=== PATIENT | male | born 1985 | race Caucasian/White ===

== ENCOUNTER → 2022-03-04 13:14 | Outpatient (BNVA) | payer OTHER, SELFPAY | PROVIDERS: PCP Family Medicine; Visit Provider Nurse Practitioner | DX: Z94.2 Lung transplant status (principal) | CPT/HCPCS: 80053; 80197; 83735; 85025; 87496 ==

== ENCOUNTER → 2022-03-11 08:40 | Outpatient (BNVA) | payer OTHER, SELFPAY | PROVIDERS: PCP Family Medicine; Visit Provider Nurse Practitioner | DX: Z94.2 Lung transplant status (principal) | CPT/HCPCS: 80053; 80197; 83735; 85025; 87496 ==

== ENCOUNTER → 2022-03-18 10:02 | Outpatient (BNVA) | payer OTHER, SELFPAY | PROVIDERS: PCP Family Medicine; Visit Provider Nurse Practitioner | DX: Z94.2 Lung transplant status (principal) | CPT/HCPCS: 80053; 80197; 83735; 85025; 87496 ==

== ENCOUNTER 2022-03-28 09:56 | Outpatient (CLI) | payer OTHER, SELFPAY | END 2022-03-28 09:57 | disposition home or self-care (01) | LOC: RT 09:58 | PROVIDERS: PCP Family Medicine; Visit Provider Internal Medicine Pulmonary Disease | DX: Z94.3 Heart and lungs transplant status (principal) | CPT/HCPCS: 94010 ==

== ENCOUNTER → 2022-04-01 11:30 | Outpatient (BNVA) | payer OTHER, SELFPAY | PROVIDERS: PCP Family Medicine; Visit Provider Nurse Practitioner Family | DX: Z94.2 Lung transplant status (principal) | CPT/HCPCS: 80053; 80197; 83735; 87496 ==

== ENCOUNTER → 2022-04-09 08:53 | Outpatient (BNVA) | payer OTHER, SELFPAY | PROVIDERS: PCP Family Medicine; Visit Provider Nurse Practitioner | DX: Z94.2 Lung transplant status (principal) | CPT/HCPCS: 80053; 80197; 83735; 85025; 87496 ==

== ENCOUNTER → 2022-04-22 09:04 | Outpatient (BNVA) | payer BC, SELFPAY | PROVIDERS: PCP Family Medicine; Visit Provider Nurse Practitioner | DX: Z94.2 Lung transplant status (principal); D84.9 Immunodeficiency, unspecified | CPT/HCPCS: 80053; 80197; 83735; 85025; 87496 ==

== ENCOUNTER → 2022-05-20 09:12 | Outpatient (BNVA) | payer BC, SELFPAY | PROVIDERS: PCP Family Medicine; Visit Provider Nurse Practitioner | DX: Z94.2 Lung transplant status (principal); D84.9 Immunodeficiency, unspecified | CPT/HCPCS: 80053; 80197; 83735; 85025; 87496 ==

== ENCOUNTER → 2022-05-27 09:01 | Outpatient (BNVA) | payer BC, SELFPAY | PROVIDERS: PCP Family Medicine; Visit Provider Nurse Practitioner | DX: D84.9 Immunodeficiency, unspecified (principal); Z94.2 Lung transplant status | CPT/HCPCS: 80053; 80197; 83735; 85025; 87496 ==

== ENCOUNTER → 2022-06-10 08:56 | Outpatient (BNVA) | payer BC, SELFPAY | PROVIDERS: PCP Family Medicine; Visit Provider Nurse Practitioner | DX: D84.9 Immunodeficiency, unspecified (principal); Z94.2 Lung transplant status | CPT/HCPCS: 80053; 80197; 83735; 85025; 87496 ==

== ENCOUNTER → 2022-06-24 10:31 | Outpatient (BNVA) | payer BC, SELFPAY | PROVIDERS: PCP Family Medicine; Visit Provider Nurse Practitioner | DX: D84.9 Immunodeficiency, unspecified (principal); Z94.2 Lung transplant status | CPT/HCPCS: 80053; 80197; 83735; 85025; 87496 ==

== ENCOUNTER → 2022-07-01 11:41 | Outpatient (BNVA) | payer BC, SELFPAY | PROVIDERS: PCP Family Medicine; Visit Provider Nurse Practitioner | DX: Z94.2 Lung transplant status (principal) | CPT/HCPCS: 80053; 80197; 83735; 85025; 87496 ==

== ENCOUNTER → 2022-07-08 08:59 | Outpatient (BNVA) | payer BC, SELFPAY | PROVIDERS: PCP Family Medicine; Visit Provider Nurse Practitioner | DX: D84.9 Immunodeficiency, unspecified (principal); Z94.2 Lung transplant status | CPT/HCPCS: 80053; 80197; 80200; 83735; 85025; 87496 ==

== ENCOUNTER → 2022-07-15 10:19 | Outpatient (BNVA) | payer BC, SELFPAY | PROVIDERS: PCP Family Medicine; Visit Provider Nurse Practitioner | DX: Z94.2 Lung transplant status (principal); D84.9 Immunodeficiency, unspecified | CPT/HCPCS: 80053; 80197; 83735; 85025; 87496 ==

== ENCOUNTER → 2022-07-22 09:13 | Outpatient (BNVA) | payer BC, SELFPAY | PROVIDERS: PCP Family Medicine; Visit Provider Nurse Practitioner | DX: D84.9 Immunodeficiency, unspecified (principal); Z94.2 Lung transplant status | CPT/HCPCS: 80053; 80197; 83735; 85025; 87496 ==

== ENCOUNTER → 2022-08-05 10:10 | Outpatient (BNVA) | payer BC, SELFPAY | PROVIDERS: PCP Family Medicine; Visit Provider Nurse Practitioner | DX: D84.9 Immunodeficiency, unspecified (principal); Z94.2 Lung transplant status | CPT/HCPCS: 80053; 80197; 83735; 85025; 87496 ==

== ENCOUNTER → 2022-08-19 08:42 | Outpatient (BNVA) | payer BC, SELFPAY | PROVIDERS: PCP Family Medicine; Visit Provider Nurse Practitioner | DX: D84.9 Immunodeficiency, unspecified (principal); Z94.2 Lung transplant status | CPT/HCPCS: 80053; 80197; 83735; 85025; 87496 ==

== ENCOUNTER → 2022-09-10 08:57 | Outpatient (BNVA) | payer BC, SELFPAY | PROVIDERS: PCP Family Medicine; Visit Provider Nurse Practitioner | DX: D84.9 Immunodeficiency, unspecified (principal); J80 Acute respiratory distress syndrome; U07.1 COVID-19; Z94.2 Lung transplant status | CPT/HCPCS: 80053; 80197; 83735; 85025; 87496 ==

== ENCOUNTER → 2022-09-23 09:09 | Outpatient (BNVA) | payer BC, SELFPAY | PROVIDERS: PCP Family Medicine; Visit Provider Nurse Practitioner | DX: D84.9 Immunodeficiency, unspecified (principal); Z94.2 Lung transplant status | CPT/HCPCS: 80053; 80197; 83735; 85025; 87496 ==

== ENCOUNTER → 2022-10-07 08:50 | Outpatient (BNVA) | payer BC, SELFPAY | PROVIDERS: PCP Family Medicine; Visit Provider Nurse Practitioner | DX: D84.9 Immunodeficiency, unspecified (principal); Z94.2 Lung transplant status | CPT/HCPCS: 80053; 80197; 83735; 85025; 87496 ==

== ENCOUNTER → 2022-11-04 09:03 | Outpatient (BNVA) | payer BC, SELFPAY | PROVIDERS: PCP Family Medicine; Visit Provider Nurse Practitioner | DX: D84.9 Immunodeficiency, unspecified (principal); Z94.2 Lung transplant status | CPT/HCPCS: 80053; 80197; 83735; 85025; 87496 ==

== ENCOUNTER 2022-11-07 10:53 | Outpatient (CLI) | payer BC, SELFPAY ==
--- NOTE | 2022-11-07 11:16 | USCV_ITS ---
Breann Rangel Age: 37 Gender: M : 1985 Exam Date: 11/07/2022 11:28 Ordering Phys: Misa Montoya NP Technologist: Exam Location: [facility] [place] Indication: hx of massive pe lt leg dvt hx of lung transplant HISTORY: pe PROCEDURES: The venous duplex Doppler examination of both lower extremities was performed in the standard fashion. The following venous structures were evaluated: common femoral vein, profunda vein, proximal portion of the greater saphenous vein, superficial femoral vein, and the popliteal vein. FINDINGS: There is chronic occluding dvt from the lt femoral vein , popletieal, and lt perinieal trunk. There appears to be recanalized ned from profunda vein to the knee. There does not appear to be new thrombus in the lt leg. The rt leg is normal. CONCLUSIONS Chronic appearing occlusive DVT LEFT femoral, popliteal, and peroneal trunk. Recanalized profunda. No acute appearing thrombus No evidence of right lower extremity DVT. Bartolo Parmar MD (Electronically Signed) Final Date: 07 November 2022 14:42 S
== END 2022-11-07 10:54 | disposition home or self-care (01) ==
PROVIDERS: PCP Family Medicine; Visit Provider Nurse Practitioner
DX: D84.9 Immunodeficiency, unspecified (principal); Z94.2 Lung transplant status
CPT/HCPCS: 93970

== ENCOUNTER → 2022-12-02 08:59 | Outpatient (BNVA) | payer BC, SELFPAY | PROVIDERS: PCP Nurse Practitioner Family; Visit Provider Nurse Practitioner | DX: D84.9 Immunodeficiency, unspecified (principal); Z94.2 Lung transplant status | CPT/HCPCS: 80053; 80197; 83735; 85025; 87496 ==

== ENCOUNTER → 2022-12-30 12:21 | Outpatient (BNVA) | payer BC, SELFPAY | PROVIDERS: PCP Nurse Practitioner Family; Visit Provider Nurse Practitioner Family | DX: D84.9 Immunodeficiency, unspecified (principal); Z94.2 Lung transplant status | CPT/HCPCS: 80053; 80197; 83735; 85025; 87496 ==

== ENCOUNTER 2023-01-29 10:50 | Outpatient (CLI) | payer BC, SELFPAY | END 2023-01-29 10:51 | disposition home or self-care (01) | PROVIDERS: Family Provider Internal Medicine Pulmonary Disease; PCP Nurse Practitioner Family; Visit Provider Internal Medicine Pulmonary Disease | DX: Z94.2 Lung transplant status (principal) | CPT/HCPCS: 94010 ==

== ENCOUNTER → 2023-01-30 11:27 | Outpatient (BNVA) | payer BC, SELFPAY | PROVIDERS: Family Provider Internal Medicine Pulmonary Disease; PCP Nurse Practitioner Family; Visit Provider Nurse Practitioner Family | DX: D84.9 Immunodeficiency, unspecified (principal); J80 Acute respiratory distress syndrome; U07.1 COVID-19; Z94.2 Lung transplant status | CPT/HCPCS: 80053; 80197; 83735; 85025; 87496 ==

== ENCOUNTER → 2023-03-12 09:10 | Outpatient (BNVA) | payer BC, SELFPAY | PROVIDERS: Family Provider Internal Medicine Pulmonary Disease; PCP Nurse Practitioner Family; Visit Provider Nurse Practitioner Family | DX: D84.9 Immunodeficiency, unspecified (principal); U07.1 COVID-19; J80 Acute respiratory distress syndrome | CPT/HCPCS: 80053; 80197; 83735; 85007; 85027; 87496 ==

== ENCOUNTER → 2023-04-09 09:12 | Outpatient (BNVA) | payer BC, SELFPAY | PROVIDERS: Family Provider Internal Medicine Pulmonary Disease; PCP Nurse Practitioner Family; Visit Provider Nurse Practitioner Family | DX: U07.1 COVID-19 (principal); J80 Acute respiratory distress syndrome; Z94.2 Lung transplant status; Z79.899 Other long term (current) drug therapy | CPT/HCPCS: 80053; 80197; 83735; 85007; 85027; 87496 ==

== ENCOUNTER → 2023-05-07 12:18 | Outpatient (BNVA) | payer OTHER, SELFPAY | PROVIDERS: Family Provider Internal Medicine Pulmonary Disease; PCP Nurse Practitioner Family; Visit Provider Nurse Practitioner Family | DX: D84.9 Immunodeficiency, unspecified (principal); U07.1 COVID-19; J80 Acute respiratory distress syndrome; Z94.2 Lung transplant status | CPT/HCPCS: 80053; 80197; 83735; 85007; 85025; 85027; 87496 ==

== ENCOUNTER 2023-05-15 17:07 | Inpatient (IN) | payer BC, OTHER, SELFPAY ==
[2023-05-15 17:11] VITALS: BP 150/96; PULSE 94; RESP 18; TEMP 36.7; O2SAT 98; BMI 26.6
--- NOTE | 2023-05-15 17:13 | USR_ITS ---
PROCEDURE INFORMATION: Exam: US Duplex Right Lower Extremity Veins, Limited Exam date and time: 05/15/2023 6:16 PM Age: 37 years old Clinical indication: Edema, localized; Lower extremity, right; Leg, upper and leg, lower; Patient HX: Rle edema and pain x 4-5 days. History of bilateral lung xplnt 2021 with ble dvts post-op. ; Additional info: Swelling TECHNIQUE: Imaging protocol: Real-time duplex ultrasound of the right extremity with 2-D alves scale, color Doppler flow and spectral waveform analysis including responses to compression and other maneuvers (when performed) with image documentation. Limited exam was focused on the right lower extremity veins. COMPARISON: No relevant prior studies available. FINDINGS: Right deep veins: Occlusive thrombus in the right common femoral vein, the right profunda femoris vein, the right superficial femoral vein, the right popliteal vein, the right peroneal vein, the right posterior tibial vein in the right greater saphenous vein. Superficial veins: Unremarkable. Saphenofemoral junction is patent without thrombus. Soft tissues: Unremarkable. US/[place] [id number] IMPRESSION: Extensive occlusive thrombus throughout the right lower extremity including the right common femoral, superficial femoral, deep femoral, popliteal veins and posterior tibial and peroneal veins and greater saphenous vein.
--- NOTE | 2023-05-15 17:47 | PC.NURSE ---
DAKSHA - TRANSPLANT NURSE PRACTICIONER [phone] OR CYBER ENGINEER PHONE [phone].
--- NOTE | 2023-05-15 18:30 | W.ED.GENADLT ---
HPI - General Adult General: Chief complaint: General Medical Stated complaint: swelling and pain right leg Time Seen by Provider: 05/15/23 18:16 Source: patient Mode of arrival: ambulatory Limitations: no limitations History of Present Illness: 37-year-old male has extensive history he had COVID 2 years ago that required an extensive hospitalization he was on ECMO for quite some time and of having a lung transplant in [place] he had developed a DVT as well been on Eliquis which she had stopped 3 months ago he started having right leg swelling and was concerned he had another DVT. He denies any shortness of breath denies any chest pain. Associated symptoms: Deny chest pain, dyspnea, headache(s), nausea or vomiting Review of Systems Const: Denies: fever(s), chills, body aches or change in appetite ENMT: Denies: throat pain or dental pain Card: Denies: chest pain Resp: Denies: dyspnea GI: Denies: abdominal pain, nausea, vomiting or diarrhea Musc: Reports: extremity pain and extremity swelling; Denies: neck pain or back pain Neuro: Denies: headache(s) PFSH ED PFSH: Medical History Hypertension Heart-lung transplant recipient Family History Brother Hypertension Mother Hypertension Social History Smoking and tobacco/nicotine status: never used tobacco/nicotine Physical Exam Const: COMMON NORMALS: patient oriented x3 HENMT: COMMON NORMALS: normocephalic and atraumatic HEAD & SCALP: normocephalic and atraumatic Eye: COMMON NORMALS: Equal, round and reactive pupils present and EOMs intact bilaterally PUPIL: Yes Equal, round and reactive pupils present Neck/C-Spine: COMMON NORMALS: full ROM and supple Chest: COMMONS NORMALS: normal inspection of the chest Resp: COMMON NORMALS: normal respiratory effort Cardio: COMMON NORMALS: regular rate, regular rhythm and No murmurs present (Cardio) RATE: regular rate RHYTHM: regular rhythm Extremity: NARRATIVE EXTREMITY EXAM: right leg swelling Neuro: COMMON NORMALS: patient oriented x3, moves all extremities and no focal motor deficits Psych: COMMON NORMALS: mental status grossly normal, Normal thought process present and cooperative THOUGHT PROCESS: Normal thought process present Skin: COMMON NORMALS: no rashes or lesions noted and no wounds GENERAL SKIN EXAM: no rashes or lesions noted Course Vital Signs: Vital signs: Vital Signs Temperature 98.0 F 05/15/23 17:11 Pulse Rate 68 05/15/23 19:58 Respiratory Rate 16 05/15/23 19:58 Blood Pressure 130/94 05/15/23 19:58 Pulse Oximetry 100 05/15/23 19:58 Oxygen Delivery Me thod Room Air 05/15/23 17:11 MDM - General Adult Medical Decision Making Patient presents with a DVT of spoke to his transplant team filled out for recommended to be admitted for heparin drip at this time he has no shortness of breath no signs of pulmonary embolism I spoke to his intermediate designer Dr. Modi who seen patient as well spoke to hospitalist will admit Medical Records I reviewed the patient's medical records. Lab Data I reviewed the patient's lab results. 05/15/23 18:42 05/15/23 18:42 Radiology Impressions Venous Duplex 05/15/23 17:13 IMPRESSION: Extensive occlusive thrombus throughout the right lower extremity including the right common femoral, superficial femoral, deep femoral, popliteal veins and posterior tibial and peroneal veins and greater saphenous vein. ADDENDUM: 05/15/23 405 THIS REPORT CONTAINS FINDINGS THAT MAY BE CRITICAL TO PATIENT CARE. The findings were verbally communicated via telephone conference with NINO Mace at 6:51 PM LAYBOY OPERATOR on 05/15/2023. The findings were acknowledged and understood. Laboratory Results WBC 13.19 10^3/uL (3.29-11.43) H 05/15/23 18:42 RBC 3.56 10^6/uL (3.85-5.65) L 05/15/23 18:42 Hgb 11.70 g/dL (11.27-16.99) 05/15/23 18:42 Hct 36.9 % (37-53) L 05/15/23 18:42 MCV 103.7 fl (82-101) H 05/15/23 18:42 MCH 32.9 pg (27-33) 05/15/23 18: MCHC 31.7 g/dL (30-55) 05/15/23 18:42 RDW 12.1 % (12.1-15.1) 05/15/23 18:42 Plt Count 378 10^3/cmm (157-399) 05/15/23 18:42 MPV 9.5 fL (7.4-10.4) 05/15/23 18:42 Neut % (Auto) 79.1 % 05/15/23 18:42 Lymph % (Auto) 7.2 % 05/15/23 18:42 [place] % (Auto) 12.7 % 05/15/23 18:42 Eos % (Auto) 0.1 % 05/15/23 18:42 Baso % (Auto) 0.2 % 05/15/23 18:42 Neut # (Auto) 10.44 10^3/uL (1.8-7.7) H 05/15/23 18:42 Lymph # (Auto) 1.0 10^3/uL (0.8-4.8) 05/15/23 18:42 [place] # (Auto) 1.7 10^3/uL (0.2-0.9) H 05/15/23 18:42 Eos # (Auto) 0.0 10^3/uL (0.0-0.8) 05/15/23 18:42 Baso # (Auto) 0.0 10^3/uL (0.0-0.1) 05/15/23 18:42 Nucleated RBC % (auto) 0 % 05/15/23 18:42 Nucleated RBCs # 0.0 /100WBC 05/15/23 18:42 Sodium 132 mmol/L (136-145) L 05/15/23 18:42 Potassium 5.2 mmol/L (3.5-5.1) H 05/15/23 18:42 Chloride 92 mmol/L (98-107) L 05/15/23 18:42 Carbon Dioxide 26 mmol/L (22-29) 05/15/23 18:42 Anion Gap 19.2 (5-19) H 05/15/23 18:42 BUN 18 mg/dL (6-20) 05/15/23 18:42 Creatinine 1.2 mg/dL (0.7-1.2) 05/15/23 18:42 GFR Calculation 67.4 mL/min (90-130) L 05/15/23 18:42 Glucose 125 mg/dL (65-115) H 05/15/23 18:42 Calculated Osmolality 277 mOsm/kg (285-295) L 05/15/23 18:42 Calcium 9.9 mg/dL (8.5-10.5) 05/15/23 18:42 Total Bilirubin 1.3 mg/dL (0.15-1.2) H 05/15/23 18:42 AST 38 U/L (0-40) 05/15/23 18:42 ALT 88 U/L (0-41) H 05/15/23 18:42 Alkaline Phosphatase 396 U/L (40-130) H 05/15/23 18:42 Total Protein 8.1 g/dL (6.6-8.7) 05/15/23 18:42 Albumin 3.8 g/dL (3.5-5.2) 05/15/23 18:42 Globulin 4.3 g/dL (1.3-4.6) 05/15/23 18:42 All radiology interpretation(s) finalized by discharge Discharge Plan Discharge Condition: Stable Prescriptions: No Action atovaquone 750 mg/5 mL suspension 1,500 mg PO DAILY Rx Instructions: must administer with food, preferably a high-fat meal cetirizine [All Day Allergy (cetirizine)] 10 mg tablet 10 mg PO DAILY fluticasone propionate [Allergy Relief (fluticasone)] 50 mcg/actuation spray,suspension 1 spray intranasal BID Rx Instructions: administer into each nostril sodium chloride 3.5 % solution for nebulization 4 ml inhalation Q8H PRN Lokelma 10 gram powder in packet 10 g PO .every other day metoprolol succinate 50 mg tablet extended release 24 hr 50 mg PO BID prednisone 10 mg tablet 10 mg PO DAILY ursodiol 300 mg capsule 300 mg PO BID valacyclovir 500 mg tablet 500 mg PO DAILY albuterol sulfate 2.5 mg /3 mL (0.083 %) solution for nebulization 2.5 mg inhalation Q4H PRN Pb-Rhrt-Lderrsr 133 mg tablet 399 mg PO BID Rx Instructions: 266 mg at lunch time tacrolimus 1 mg capsule 2 mg PO Q12H apixaban 5 mg tablet 2.5 mg PO BID mycophenolate sodium [Myfortic] 360 mg tablet,delayed release (DR/EC) 360 mg PO BID acetaminophen 500 mg tablet 500 mg PO Q6H PRN Rx Instructions: 1-2 tablets every 6 hours as needed Prevymis 480 mg tablet 480 mg PO DAILY lansoprazole [Prevacid] 30 mg capsule,delayed release(DR/EC) 30 mg PO DAILY azithromycin 250 mg tablet 250 mg PO DAILY Patient Comments: friday, and friday Rx Instructions: start on day 2 of therapy RSVPreF3 antigen-AS01E (PF) 120 mcg/0.5 mL suspension for reconstitution 0.5 ml IM ONCE Qty: 1 0RF Referrals: Brittanie Woody FNP [Primary Care Provider] - Ashanti Link MD [Family Provider] - Coding Level of Care Code ED Assistant Financial Accountant for Sandro Sanchez
[2023-05-15 19:06] LABS: Basophils % 0.2 %; Eosinophils % 0.1 %; Hematocrit 36.9 % (37-53); Lymphocytes % 7.2 %; Mean Corpuscular HGB Conc 31.7 g/dL (30-55); Mean Corpuscular Hemoglobin 32.9 pg (27-33); Mean Corpuscular Volume 103.7 fl (82-101); Mean Platelet Volume 9.5 fL (7.4-10.4); Monocytes # 1.7 10^3/uL (0.2-0.9); Monocytes % 12.7 %; Neutrophils # 10.44 10^3/uL (1.8-7.7); Neutrophils % 79.1 %; Nucleated Red Blood Cells % 0 %; Platelet Count 378 10^3/cmm (157-399); Red Blood Count 3.56 10^6/uL (3.85-5.65); Red Cell Distribution Width 12.1 % (12.1-15.1); White Blood Count 13.19 10^3/uL (3.29-11.43)
[2023-05-15 19:26] LABS: Alanine Aminotransferase 88 U/L (0-41); Albumin Level 3.8 g/dL (3.5-5.2); Alkaline Phosphatase 396 U/L (40-130); Anion Gap 19.2 (5-19); Aspartate Amino Transferase 38 U/L (0-40); Blood Urea Nitrogen 18 mg/dL (6-20); Calcium 9.9 mg/dL (8.5-10.5); Carbon Dioxide 26 mmol/L (22-29); Chloride 92 mmol/L (98-107); Globulin 4.3 g/dL (1.3-4.6); Glomerular Filtration Rate 67.4 mL/min (90-130); Glucose 125 mg/dL (65-115); Osmolality Calculated 277 mOsm/kg (285-295); Potassium 5.2 mmol/L (3.5-5.1); Sodium 132 mmol/L (136-145); Total Bilirubin 1.3 mg/dL (0.15-1.2); Total Protein 8.1 g/dL (6.6-8.7)
[2023-05-15] MEDS: heparin drip 25,000 UNIT/500 ML PREMIX 19.6 UNIT IV (19:36)
[2023-05-15 19:58] VITALS: BP 130/94; PULSE 68; RESP 16; O2SAT 100
[2023-05-15 20:10] VITALS: BP 142/102; PULSE 95; RESP 16; O2SAT 100
[2023-05-15 20:36] VITALS: BP 134/95; PULSE 84; RESP 18; O2SAT 100
--- NOTE | 2023-05-15 21:02 | USCV_ITS ---
Breann Rangel Age: 37 Gender: M : 1985 Exam Date: 05/15/2023 21:37 Ordering Phys: Mike Kelley MD Technologist: TOMASA [place]am Location[place] [facility] [place] Indication: SOB, Patient has extensive RIGHT lower extremity DVT. History of Afib following bilateral lung transplant in 2021. BP: 134 / 95 HR: 93 Rhythm: Sinus Technical Quality: Adequate MEASUREMENTS (Male / Female) Normal Values 2D ECHO LV Diastolic Diameter PLAX 3.6 cm 4.2 - 5.9 / 3.9 - 5.3 cm LV Systolic Diameter PLAX 2.3 cm IVS Diastolic Thickness 1.5 cm 0.6 - 1.0 / 0.6 - 0.9 cm IVS Systolic Thickness 1.6 cm LVPW Diastolic Thickness 1.3 cm 0.6 - 1.0 / 0.6 - 0.9 cm LVPW Systolic Thickness 1.8 cm LVOT Diameter 2.1 cm LV Ejection Fraction 2D Teich 65.3 % LV Ejection Fraction MOD 2C 63.4 % LV Ejection Fraction 2C AL 63.6 % LA Diameter 3.9 cm LA Width 3.9 cm LA Height 4.3 cm RA Width 3.2 cm RA Height 4.6 cm Aorta at Sinotubular Diameter 2.9 cm IVC Diameter 1.9 cm M-MODE Aortic Annulus Diameter 3.7 cm LA Ao Ratio MM 0.9 MV E Point Septal Separation 0.3 cm DOPPLER AV Peak Velocity 101.0 cm/s LVOT Peak Velocity 87.0 cm/s AV Area Cont Eq vti 3.0 cm squared AV Area Cont Eq pk 3.1 cm squared MV Peak Velocity 72.0 cm/s MV Area PHT 2.9 cm squared Mitral E to A Ratio 0.9 MV E' Velocity 40.5 cm/s Mitral E to MV E' Ratio 5.1 Mitral E to LV E' Lateral Ratio 3.8 Mitral E to LV E' Septal Ratio 7.6 TR Peak Velocity 239.0 cm/s TR Peak Gradient 22.8 mmHg TV Peak E Velocity 52.0 cm/s Right Atrial Pressure 5.0 mmHg Pulmonary Artery Systolic Pressu 27.8 mmHg PV Peak Velocity 98.0 cm/s RV Acceleration Time 0.0 s RV Ejection Time 0.3 s RV AcT/ET 0.1 FINDINGS Left Ventricle Left ventricle is normal in size. LV systolic function is normal with EF of 60 to 65%. No regional wall motion abnormalities are seen. Right Ventricle Normal in size and function Right Atrium Normal in size Left Atrium Normal in size Mitral Valve Structurally normal mitral valve. Mild mitral regurgitation. Aortic Valve Structurally normal aortic valve. No significant stenosis or regurgitation Tricuspid Valve Mild tricuspid regurgitation. Insufficient TR jet to calculate RVSP. Pulmonic Valve Not well visualized Pericardium Small sized pericardial effusion. Aorta Normal in size IVC Appears to be normal CONCLUSIONS LV systolic function is normal with EF of 60 to 65%. Mild mitral regurgitation Mild tricuspid regurgitation Small sized pericardial effusion No comparison studies are available Matt Brown MD (Electronically Signed) Final Date: 16 May 2023 13:48 S
--- NOTE | 2023-05-15 21:13 | PM.HP ---
Providers/Chief Complaint Admitting Physician: Mike Kelley MD Primary Care Provider: GUERLINE Saini Chief Complaint: swelling and pain right leg History of Present Illness Breann Rangel is a 37 year old male with a past medical history of severe COVID-19 pneumonia, acute respiratory distress syndrome, ECMO, being hospitalized for over 200 days at tertiary [facility] hospital, requiring double lung transplant, currently on multiple immunosuppressive medications, history of DVT, completed anticoagulation, off anticoagulation as back as February, history of gallbladder sludge, follows specialist at [facility], follows Dr. Modi here at [facility] [place], history of pretransplant Enterobacter tracheobronchitis, history of A-fib with RVR, who presents [facility] for right leg pain and swelling, right leg swelling started in the last 24-48 hrs., denies any chest pain, no shortness of breath, no fevers, no chills does have a cough Review of Systems Card: Denies: chest pain Resp: Denies: dyspnea GI: Denies: abdominal pain Medications/Allergies Home Medications Medication Instructions Recorded Confirmed Last Taken Type albuterol sulfate 2.5 mg/3 mL 2.5 mg inhalation Q4H PRN 03/27/22 06/12/22 Unknown History (0.083 %) solution for nebulization atovaquone 750 mg/5 mL oral 1,500 mg PO DAILY 03/27/22 11/13/22 Unknown History suspension cetirizine 10 mg tablet (All Day 10 mg PO DAILY 03/27/22 11/13/22 Unknown History Allergy (cetirizine)) fluticasone propionate 50 1 spray intranasal BID 03/27/22 11/13/22 Unknown History mcg/actuation nasal spray,suspension (Allergy Relief (fluticasone)) magnesium oxide-magnesium amino 399 mg PO BID 03/27/22 11/13/22 Unknown History acid chelate 133 mg tablet (Cj-Gkmm-Jhczekl) metoprolol succinate 50 mg 50 mg PO BID 03/27/22 11/13/22 Unknown History tablet,extended release 24 hr prednisone 10 mg tablet 10 mg PO DAILY 03/27/22 11/13/22 Unknown History sodium chloride 3.5 % for 4 ml inhalation Q8H PRN 03/27/22 11/13/22 Unknown History nebulization sodium zirconium cyclosilicate 10 10 g PO .every other day 03/27/22 11/13/22 Unknown History gram oral powder packet (Lokelma) tacrolimus 1 mg capsule, 2 mg PO Q12H 03/27/22 11/13/22 Unknown History immediate-release ursodiol 300 mg capsule 300 mg PO BID 03/27/22 11/13/22 Unknown History valacyclovir 500 mg tablet 500 mg PO DAILY 03/27/22 11/13/22 Unknown History acetaminophen 500 mg tablet 500 mg PO Q6H PRN 04/16/22 11/13/22 Unknown History lansoprazole 30 mg capsule,delayed 30 mg PO DAILY 04/16/22 11/13/22 Unknown History release (Prevacid) letermovir 480 mg tablet (Prevymis) 480 mg PO DAILY 04/16/22 11/13/22 Unknown History mycophenolate sodium 360 mg 360 mg PO BID 04/16/22 11/13/22 Unknown History tablet,delayed release (Myfortic) apixaban 5 mg tablet 2.5 mg PO BID 11/13/22 11/13/22 Unknown History azithromycin 250 mg tablet 250 mg PO DAILY 11/13/22 11/13/22 Unknown History RSVPreF3 antigen-AS01E 0.5 ml IM ONCE #1 ea 04/09/23 Unknown Rx adjuvant(PF) 120 mcg/0.5 mL IM suspension, kit Allergies Allergy/AdvReac Type Severity Reaction Status Date / Time Sulfa (Sulfonamide Allergy Intermediate rash Verified 11/13/22 10:58 Antibiotics) NSAIDS (Non-Steroidal Allergy Unknown D/T Verified 11/13/22 10:58 Anti-Inflamma transplant PFSH Acute PFSH: Medical History (Updated 05/15/23 @ 21:16 by Mike Kelley MD) Hypertension Heart-lung transplant recipient Surgical History (Updated 05/15/23 @ 21:15 by Mike Kelley MD) History of transplantation, lung Family History Brother Hypertension Mother Hypertension Social History Smoking and tobacco/nicotine status: never used tobacco/nicotine Vitals/I&O/Wt Last Vital Signs Temp 98.0 F 05/15/23 17:11 Pulse 84 05/15/23 20:36 Resp 18 05/15/23 20:36 BP 134/95 05/15/23 20:36 Pulse Ox 100 05/15/23 20:36 O2 Del Method Room Air 05/15/23 17:11 Weight last 48 hrs Weight 81.647 kg Physical Exam Const: COMMON NORMALS: no acute distress and patient oriented x3 HENMT: COMMON NORMALS: normocephalic HEAD & SCALP: normocephalic Neck/C-Spine: COMMON NORMALS: no JVD Resp: COMMON NORMALS: normal respiratory effort, No retractions, No use of accessory muscles and clear to auscultation bilaterally AUSCULTATION: clear to auscultation bilaterally Cardio: COMMON NORMALS: regular rate, regular rhythm, S1 normal heart sound present and S2 normal heart sound present RATE: regular rate RHYTHM: regular rhythm HEART SOUNDS: S1 normal heart sound present and S2 normal heart sound present GI: COMMON NORMALS: Normal to inspection, nondistended, normoactive bowel sounds present, Soft to palpation and non-tender PALPATION: Yes No hepatosplenomegaly present Extremity: COMMON NORMALS: no pedal edema NARRATIVE EXTREMITY EXAM: Right leg swelling, erythema, tenderness Neuro: COMMON NORMALS: patient oriented x3 Psych: COMMON NORMALS: mental status grossly normal Data 05/15/23 18:42 05/15/23 18:42 A&P Assessment and plan (1) Acute DVT (deep venous thrombosis): (2) Status post lung transplantation: (3) Acute respiratory distress syndrome (ARDS) due to COVID-19 virus: Plan Acute right lower extremity DVT ? With a history of bilateral lower extremity DVTs, completed anticoagulation in February, off Eliquis 2.5 mg twice daily, ? US/[place] [id number] IMPRESSION: Extensive occlusive thrombus throughout the right lower extremity including the right common femoral, superficial femoral, deep femoral, popliteal veins and posterior tibial and peroneal veins and greater saphenous vein. ? Plan, ? Cardiac echo ? D-dimer, ? Troponin series, ? Heparin drip ? Will reach out to transplant team tomorrow, likely discharge on Eliquis History of acute respiratory distress syndrome secondary COVID-19, requiring ECMO, lung transplantation, ? Continue immunosuppressive medications, advised patient to bring in his medications that we do not have here History of gallbladder sludge, bili is 1.3, alk phos is 396, ALT 88 no abdominal pain ? Will order right upper quadrant ultrasound Hyperkalemia 5.2, monitor repeat potassium in the morning3 Full code Lovenox for DVT prophylaxis Attestations Medical Necessity Statement*: Patient requires hospitalization, inpatient, greater than 2 minutes, for acute right lower extremity DVT, Diagnoses Acute DVT (deep venous thrombosis) I82.409 Status post lung transplantation Z94.2 Acute respiratory distress syndrome (ARDS) due to COVID-19 virus U07.1; J80
[2023-05-15 21:18] VITALS: O2SAT 99
[2023-05-15 21:47] LABS: Lipase 23 U/L (13-60); Troponin(5th) Baseline 24 ng/L (0-15)
[2023-05-15 21:50] LABS: Procalcitonin 0.09 ng/mL (0-0.5)
[2023-05-15 21:57] LABS: Troponin 5 2HR 24.13 ng/L (0-15); Troponin 5 2HR Delta 0.13 ABS# (0-10)
[2023-05-15 22:16] LABS: D Dimer >= 20.00 ug/mLFEU (0-0.59)
[2023-05-16] VITALS (15 sets, daily range): BP systolic 108–137; BP diastolic 70–87; PULSE 68–96; RESP 16–20; TEMP 37.1–37.4; O2SAT 94–98; BMI 26.6
[2023-05-16 00:22] LABS: Gamma Glutamyl Transferase 415 U/L (8-61)
[2023-05-16 01:04] LABS: Basophils % 0.2 %; Eosinophils % 0.1 %; Hematocrit 34.4 % (37-53); Lymphocytes # 1.2 10^3/uL (0.8-4.8); Lymphocytes % 10.8 %; Mean Corpuscular HGB Conc 32.6 g/dL (30-55); Mean Corpuscular Volume 101.5 fl (82-101); Mean Platelet Volume 9.3 fL (7.4-10.4); Monocytes # 1.5 10^3/uL (0.2-0.9); Monocytes % 12.9 %; Neutrophils # 8.46 10^3/uL (1.8-7.7); Neutrophils % 75.4 %; Nucleated Red Blood Cells % 0 %; Platelet Count 356 10^3/cmm (157-399); Red Blood Count 3.39 10^6/uL (3.85-5.65); Red Cell Distribution Width 12.2 % (12.1-15.1); White Blood Count 11.22 10^3/uL (3.29-11.43)
[2023-05-16 01:16] LABS: Estmated Average Glucose 108; Hemoglobin A1C 5.4 % (4.0-6.0)
[2023-05-16 01:26] LABS: Troponin 5 6HR 24.19 ng/L (0-15); Troponin 5 6HR Delta 0.19 ng/L (0-12)
[2023-05-16 01:35] LABS: Chol HDL Ratio 3.78 mg/dL (1.0-5.00); Cholesterol 170 mg/dL (0-200); HDL Cholesterol 45 mg/dL (60-100); LDL Cholesterol Calculated 106 mg/dL (50-129); LDL HDL Ratio 2.36 RATIO (0.00-3.22); NT Pro B Type Natriuretic Pept 182 pg/mL (0-125); Triglycerides 95 mg/dL (0-150)
[2023-05-16] MEDS: morphine 4 mg/mL SDV 1 mL 2 MG IVP ×4 (01:47→21:06)
[2023-05-16 01:51] LABS: Alanine Aminotransferase 79 U/L (0-41); Albumin Level 3.7 g/dL (3.5-5.2); Alkaline Phosphatase 397 U/L (40-130); Anion Gap 16.8 (5-19); Aspartate Amino Transferase 39 U/L (0-40); Blood Urea Nitrogen 16 mg/dL (6-20); Calcium 9.9 mg/dL (8.5-10.5); Carbon Dioxide 26 mmol/L (22-29); Chloride 92 mmol/L (98-107); Glomerular Filtration Rate 67.4 mL/min (90-130); Glucose 118 mg/dL (65-115); Magnesium 1.7 mg/dL (1.7-2.3); Osmolality Calculated 272 mOsm/kg (285-295); Phosphorus 2.8 mg/dL (2.5-4.5); Potassium 4.8 mmol/L (3.5-5.1); Sodium 130 mmol/L (136-145); Thyroid Stimulating Hormone 0.24 uIU/mL (0.27-4.20); Total Bilirubin 1.3 mg/dL (0.15-1.2); Total Protein 6.7 g/dL (6.6-8.7)
[2023-05-16 04:29] LABS: Partial Thromboplastin Time 31.6 SECONDS (23.9-36.7)
[2023-05-16] MEDS: heparin drip 25,000 UNIT/500 ML PREMIX 24.6 UNIT IV (04:47)
[2023-05-16] MEDS: tacrolimus 0.5 mg Capsule 1 MG PO (05:25)
[2023-05-16] MEDS: ondansetron 2 mg/ML SDV 2 mL 4 MG IVP ×2 (07:51→21:05)
--- NOTE | 2023-05-16 08:44 | PC.PHAR ---
PT HAS PREFERRED PHARMACY+[facility] AND 2 SPECIALTY PHARMACIES. PT HAS CURRENT MED LIST AND KNOWS HIS MEDICATIONS VERY WELL. 05/16/23
--- NOTE | 2023-05-16 10:51 | PC.CHAP ---
Pastoral Care Encounter/Spiritual Assessment Type of Contact [] Declined reconciliation specialist visit [] Patient/Family/Request visit [] Outpatient visit [] Follow-up visit [] Physician referral [] Code/Alert [x] Routine visit [] Staff referral [] Actively dying [] Patient sleeping [x] Family support [] [] Out of room [] Palliative care [] [] Receiving care in room [] Pre-surgical visit [] Trauma [] Long length of stay [] ICU visit [] Other: Relational/Emotional Strength [x] Patient feels connected with others/family/visitors/staff [] Distress [] Loneliness/isolation [] Abandonment Spirituality of Patient [x] Person of Brittany [] Attends Hoahaoism of their Brittany [x] Believes in Prayer [] Reads Bible or Evangelical materials [] There are Spiritual issues to be addressed Telephone Sales Agent Interventions [x] Prayer [x Active listening [] Non-anxious presence [xSpiritual/emotional support [] Crisis/trauma care [] Spiritual counseling [] Bereavement support [] Provided bereavement packet [] Provided Bible/devotional materials [] Provided toy/stuffed animal, coloring book to patient or family member [] Provided Communion [] Anointing/[place] [] Salvation [x] Completed spiritual assessment [] Other: Impact on Illness or Injury [] Angry [] Fearful [] Anxious [] Often cries [] Exhaustion [] Unable to work [] Unable to attend episcopalian [] Unable to walk/stand [] Unable to read [] Unable to drive [] Unable to eat/drink [] Unable to sleep [] Unable to be with family [] Patient intubated [] Other: Summary Time spent with patient 5 min
[2023-05-16 12:24] LABS: Partial Thromboplastin Time 34.6 SECONDS (23.9-36.7)
--- NOTE | 2023-05-16 12:44 | P.PN_ITS ---
Subjective 2 Subjective: Spoke with the patient Dr. Ly Capone and transplant team I did bring up IVC filter, currently there is no indication, after multidisciplinary approach we have decided to use Lovenox for 3 months and then switch to Eliquis down the road patient is agreeable, echo is pending He is hemodynamically stable Tacrolimus levels are pending, Vitals/I&O/Wt Last Vital Signs Temp 98.8 F 05/16/23 11:16 Pulse 86 05/16/23 11:16 Resp 16 05/16/23 11:16 BP 119/80 05/16/23 11:16 Pulse Ox 96 05/16/23 11:16 O2 Del Method Room Air 05/16/23 11:16 FiO2 21 05/15/23 21:18 05/15/23 05/16/23 05/16/23 22:59 06:59 14:59 Intake Total 360 / 360 Balance 360 / 360 Weight last 48 hrs Weight 83.007 kg Weight 81.647 kg Weight 81.647 kg Physical Exam 2 Narrative: Hemodynamically stable Pleasant cough GCS 15 Young male sitting comfortably without any active chest discomfort or shortness of breath Doing well on room air Hemodynamic stable abdomen soft Right leg swelling noticed Data 05/16/23 00:59 05/16/23 00:59 A&P Assessment and plan (1) Right leg DVT: (2) Acute DVT (deep venous thrombosis): (3) Immunosuppression: (4) Status post lung transplantation: Plan Acute DVT, There is plan to consult Dr. Capone For now patient is on heparin drip echo is pending nonsignificant delta troponin No active chest pain or shortness of breath Will transition him to therapeutic Lovenox at the time of discharge and then transition to Eliquis down the road Patient is agreeable with the plan No indication for IVC filter, multiple family meetings conducted, multidisciplinary approach Full code Cardiac diet Spoke with Dr. Modi as well Attestations 2 Medical Necessity Statement*: Continue medical management Coding Level of Care Code 20326 High Time for a total of 45 minutes, includes reviewing past or interval history, examining/interviewing patient, placing orders, counseling patient/family/other support, updating patient/family/other support, discussing plan of care with staff, communicating with other healthcare providers, documenting encounter and coordinating care Diagnoses Right leg DVT I82.401 Acute DVT (deep venous thrombosis) I82.409 Immunosuppression D84.9 Status post lung transplantation Z94.2
[2023-05-16] MEDS: heparin 5,000 unit/mL INJ 1 mL IV (12:49)
[2023-05-16] MEDS: enoxaparin 80 mg/0.8 mL Syringe SUBCUT (16:21)
[2023-05-16 20:47] LABS: Partial Thromboplastin Time 36.7 SECONDS (23.9-36.7)
[2023-05-16 21:09] LABS: Adenovirus Not Detected (NOT DETECT); Chlamydia Pneumoniae Not Detected (NOT DETECT); Coronavirus 229E,HKU1,NL63,OC4 Not Detected (NOT DETECT); Human Metapneumovirus Not Detected (NOT DETECT); Human Rhinovirus/Enterovirus Not Detected (NOT DETECT); Influenza A Not Detected (NOT DETECT); Influenza A H1 Not Detected (NOT DETECT); Influenza A H1-2009 Not Detected (NOT DETECT); Influenza A H3 Not Detected (NOT DETECT); Influenza B Not Detected (NOT DETECT); Mycoplasma Pneumoniae Not Detected (NOT DETECT); Parainfluenza Virus Type 1 Not Detected (NOT DETECT); Parainfluenza Virus Type 2 Not Detected (NOT DETECT); Parainfluenza Virus Type 3 Not Detected (NOT DETECT); Parainfluenza Virus Type 4 Not Detected (NOT DETECT); Respiratory Syncytial Virus A Not Detected (NOT DETECT); Respiratory Syncytial Virus B Not Detected (NOT DETECT); SARS-COV-2 Not Detected (NOT DETECT)
--- NOTE | 2023-05-16 21:18 | US_ITS ---
WS: [id number] RIGHT UPPER QUADRANT ULTRASOUND HISTORY: elevated alkphos COMPARISON: None available. Liver: 13.4 cm in length. Normal size liver and echogenicity. No bile duct dilatation or mass. Portal Vein: Normal hepatopetal flow with monophasic waveform. Gallbladder: Normally distended gallbladder with no stones or wall thickening. CBD: 0.4 cm Pancreas: Normal size and echogenicity. Right kidney: 10.5 cm in length. Normal size and echogenicity. No hydronephrosis or mass. Aorta and IVC: Unremarkable abdominal aorta and IVC. No ascites. IMPRESSION: Normal RIGHT upper quadrant ultrasound.
[2023-05-17] VITALS (13 sets, daily range): BP systolic 116–128; BP diastolic 73–79; PULSE 85–95; RESP 16–19; TEMP 36.3–37.7; O2SAT 96–100; BMI 27.0
[2023-05-17] MEDS: morphine 4 mg/mL SDV 1 mL 2 MG IVP ×3 (02:17→08:09)
[2023-05-17] MEDS: enoxaparin 80 mg/0.8 mL Syringe SUBCUT (04:24)
[2023-05-17 05:16] LABS: Basophils % 0.2 %; Eosinophils % 0.4 %; Hematocrit 35.8 % (37-53); Lymphocytes # 1.2 10^3/uL (0.8-4.8); Lymphocytes % 10.8 %; Mean Corpuscular HGB Conc 32.4 g/dL (30-55); Mean Corpuscular Hemoglobin 33.3 pg (27-33); Mean Corpuscular Volume 102.9 fl (82-101); Mean Platelet Volume 10.4 fL (7.4-10.4); Monocytes # 1.6 10^3/uL (0.2-0.9); Monocytes % 14.6 %; Neutrophils # 7.87 10^3/uL (1.8-7.7); Neutrophils % 73.5 %; Nucleated Red Blood Cells % 0 %; Platelet Count 332 10^3/cmm (157-399); Red Blood Count 3.48 10^6/uL (3.85-5.65); Red Cell Distribution Width 12.3 % (12.1-15.1); White Blood Count 10.69 10^3/uL (3.29-11.43)
[2023-05-17 05:39] LABS: Anion Gap 15.8 (5-19); Blood Urea Nitrogen 16 mg/dL (6-20); Carbon Dioxide 28 mmol/L (22-29); Chloride 97 mmol/L (98-107); Glomerular Filtration Rate 56.4 mL/min (90-130); Glucose 96 mg/dL (65-115); Osmolality Calculated 283 mOsm/kg (285-295); Potassium 4.8 mmol/L (3.5-5.1); Sodium 136 mmol/L (136-145)
--- NOTE | 2023-05-17 06:21 | PC.NURSE ---
Pt c/o increase frequency of pain in right leg. Was noted on palpation for pedal pulse dimminished, cap refill 4-6 seconds and swelling at ankle. Phys notified, ordered one time dose of morphine for pain.
[2023-05-17] MEDS: ondansetron 2 mg/ML SDV 2 mL 4 MG IVP (08:09)
--- NOTE | 2023-05-17 10:16 | USR_ITS ---
PROCEDURE INFORMATION: Exam: US Duplex Right Lower Extremity Veins, Limited Exam date and time: 05/17/2023 10:41 AM Age: 37 years old Clinical indication: Pain; Leg, upper and leg, lower; Right; Additional info: Worsening pain TECHNIQUE: Imaging protocol: Real-time duplex ultrasound of the right extremity with 2-D alves scale, color Doppler flow and spectral waveform analysis including responses to compression and other maneuvers (when performed) with image documentation. Limited exam was focused on the right lower extremity veins. COMPARISON: [place] [id number] 05/15/2023 6:16 PM FINDINGS: Right deep veins: Unremarkable. The common femoral, femoral, proximal profunda femoral and popliteal veins are patent without thrombus. Normal Doppler waveforms. Normal compressibility and/or augmentation response. Superficial veins: Unremarkable. Saphenofemoral junction is patent without thrombus. Soft tissues: Unremarkable. Other findings: There is extensive thrombosis involving the common femoral vein, superficial femoral vein, popliteal vein and greater saphenous vein. US/[place] [id number] IMPRESSION: Extensive DVT of the right leg along with thrombosis of the greater saphenous vein
--- NOTE | 2023-05-17 11:09 | PM.CONSULT ---
Providers/Reason For Consult Consulting Physician/Specialty*: Jared Erazo MD, [facility]/pulmonary critical care Reason for Consult*: Extensive right leg DVT Requesting Physician: Steven Barclay MD Attending Physician: Steven Barclay MD Primary Care Provider: GUERLINE Saini History of Present Illness History of Present Illness Breann Rangel is a 37 year old male with bilateral lung transplantation for COVID-19 ARDS in August 2021-admitted with significant right leg swelling for last few days with hip pain. Today in emergency room venous Doppler showed extensive clot burden. Patient denied any chest pains, shortness of breath, saturating well on room air. His BNP is 182 slightly elevated troponin with normal 2-hour delta. Given his extensive clot burden patient was started on heparin GTT and pulmonary consulted I have known Mr. Crain in my pulmonary clinic for post bilateral lung transplant care. He hails from [place] close to [facility]. Patient suffered from COVID-19 pneumonia and was transferred to [place] for increasing oxygen requirements-where he was intubated and mechanically ventilated and later transferred to [facility] for ECMO as well as bilateral lung transplantation. Subsequently underwent bilateral lung transplant for COVID-19 ARDS on 08/27/2021 Followed by washout and bilateral wedge resection (right middle lobe, lingula ) on 08/28/2021-followed by chest closure and second RML resection on 08/30/2021. Patient was for over 200 days at tertiary level hospital, requiring double lung transplant, currently on multiple immunosuppressive medications. Post bilateral lung transplant in 2021 patient had left leg DVT and was on prolonged anticoagulation-he follows up with surfacing machine operator at [facility]. As per patient's transplant commercial sales director. Dr. Ashanti Link-hemophilia workup was negative at [facility]. The bilateral Doppler 03/31/2023 at [facility] reported no evidence of any acute DVT noted in bilateral lower extremity. There is evidence of chronic occlusive DVT noted in the left proximal - distal femoral vein, left popliteal vein. Patient reported that he was taken off anticoagulation back in February 2023 as left leg DVT was chronic. He also has history of gallbladder sludge, follows specialist at [facility] His other significant post transplant course included history of pretransplant Enterobacter tracheobronchitis treated with antibiotics, history of A-fib with RVR. Seen patient at bedside He is not in any respiratory distress He reported having pain in right leg as well as worsening swelling in right foot. Denied any chest pains or any other complaints. Review of Systems General: Reports: 10 or more systems reviewed and unremarkable except in HPI and below Medications/Allergies Home Medications Medication Instructions Recorded Confirmed Last Taken Type albuterol sulfate 2.5 mg/3 mL 2.5 mg inhalation Q4H PRN UNKNOWN 03/27/22 05/16/23 Unknown History (0.083 %) solution for nebulization atovaquone 750 mg/5 mL oral 1,500 mg PO DAILY 03/27/22 05/16/23 Unknown History suspension cetirizine 10 mg tablet (All Day 10 mg PO DAILY 03/27/22 05/16/23 Unknown History Allergy (cetirizine)) fluticasone propionate 50 1 spray intranasal BID 03/27/22 05/16/23 Unknown History mcg/actuation nasal spray,suspension (Allergy Relief (fluticasone)) magnesium oxide-magnesium amino 399 mg PO BID 03/27/22 05/16/23 Unknown History acid chelate 133 mg tablet (Ja-Tpcf-Voavtrf) prednisone 10 mg tablet 10 mg PO DAILY 03/27/22 05/16/23 Unknown History sodium chloride 3.5 % for 4 ml inhalation Q8H 03/27/22 05/16/23 Unknown History nebulization sodium zirconium cyclosilicate 10 10 g PO .every other day 03/27/22 05/16/23 Unknown History gram oral powder packet (Lokelma) tacrolimus 1 mg capsule, See Rx Instructions .Route .COMPLEX 03/27/22 05/16/23 Unknown History immediate-release ursodiol 300 mg capsule 300 mg PO BID 03/27/22 05/16/23 Unknown History valacyclovir 500 mg tablet 500 mg PO DAILY 03/27/22 05/16/23 Unknown History acetaminophen 500 mg tablet 500 mg PO Q6H PRN Pain 04/16/22 05/16/23 Unknown History lansoprazole 30 mg capsule,delayed 30 mg PO DAILY 04/16/22 05/16/23 Unknown History release (Prevacid) letermovir 480 mg tablet (Prevymis) 480 mg PO DAILY 04/16/22 05/16/23 Unknown History mycophenolate sodium 360 mg 360 mg PO BID 04/16/22 05/16/23 Unknown History tablet,delayed release (Myfortic) metoprolol succinate 100 mg 100 mg PO DAILY 05/16/23 05/16/23 Unknown History tablet,extended release 24 hr enoxaparin 80 mg/0.8 mL 80 mg (0.8 mL) SUBCUT Q12H 1 week 05/17/23 Unknown Rx subcutaneous syringe (Lovenox) #11.2 mL Allergies Allergy/AdvReac Type Severity Reaction Status Date / Time Sulfa (Sulfonamide Allergy Intermediate rash Verified 11/13/22 10:58 Antibiotics) NSAIDS (Non-Steroidal Allergy Unknown D/T Verified 11/13/22 10:58 Anti-Inflamma transplant Current Medications Generic Name Dose Route Start Last Admin Trade Name Freq PRN Reason Stop Dose Admin Azithromycin 250 mg 05/16/23 09:00 05/16/23 08:06 Azithromycin 250 Mg Tablet PO Not Given DAILY [facility] Protocol Enoxaparin Sodium 80 mg 05/16/23 16:00 05/17/23 04:24 Enoxaparin 80 Mg/0.8 Ml Syringe SUBCUT 80 mg Q12H VALERY Administration Metoprolol Succinate 100 mg 05/16/23 09:00 05/16/23 09:15 Metoprolol Succinate Er (24 Hr) 50 Mg Tablet PO Not Given DAILY [facility] Morphine Sulfate 2 mg 05/15/23 21:02 05/17/23 08:09 Morphine 4 Mg/Ml Sdv 1 Ml IVP 2 mg Q4H PRN Administration SEVERE PAIN Non-Formulary Medication 1,500 mg 05/16/23 09:00 05/16/23 09:13 Atovaquone PO Not Given DAILY [facility] Non-Formulary Medication 360 mg 05/15/23 21:10 05/16/23 19:43 Mycophenolate Sodium [Myfortic] PO Not Given BID VALERY Non-Formulary Medication 480 mg 05/16/23 09:00 05/16/23 09:13 Letermovir [Prevymis] PO Not Given DAILY [facility] Non-Formulary Medication 300 mg 05/16/23 09:00 05/16/23 19:44 Ursodiol PO Not Given BID VALERY Ondansetron HCl 4 mg 05/15/23 21:02 05/17/23 08:09 Ondansetron 2 Mg/Ml Sdv 2 Ml IVP 4 mg Q8H PRN Administration vomiting, or N/V if npo Pantoprazole Sodium 40 mg 05/15/23 21:15 05/16/23 21:01 Pantoprazole 40 Mg Sdv IVP Not Given Q24H VALERY Prednisone 10 mg 05/16/23 09:00 05/16/23 08:06 Prednisone 10 Mg Tablet PO Not Given DAILY VALERY Tacrolimus 1 mg 05/16/23 06:00 05/17/23 06:12 Tacrolimus 0.5 Mg Capsule PO Not Given QAM VALERY Tacrolimus 0.5 mg 05/16/23 18:00 05/16/23 19:44 Tacrolimus 0.5 Mg Capsule PO Not Given QPM VALERY Valacyclovir HCl 500 mg 05/16/23 09:00 05/16/23 09:14 Valacyclovir 1,000 Mg Tablet PO Not Given DAILY VALERY PFSH Acute PFSH: Medical History Hypertension Heart-lung transplant recipient Surgical History History of transplantation, lung Family History Brother Hypertension Mother Hypertension Social History Smoking and tobacco/nicotine status: never used tobacco/nicotine Vitals/I&O/Wt Last Vital Signs Temp 98.3 F 05/17/23 07:48 Pulse 89 05/17/23 08:14 Resp 16 05/17/23 08:14 BP 121/77 05/17/23 07:48 Pulse Ox 97 05/17/23 08:14 O2 Del Method Room Air 05/17/23 08:14 FiO2 21 05/15/23 21:18 05/16/23 05/17/23 05/17/23 22:59 06:59 14:59 Intake Total 240 / 799.67 360 / 360 Balance 240 / 799.67 360 / 360 Weight last 48 hrs Weight 183 lb Weight 183 lb Weight 180 lb Weight 180 lb Physical Exam Narrative: General: alert, NAD HEENT: conj clear, EOMI, PERRL, mmm, Neck: supple, no meningismus Heme: no cervical LAP Respiratory: Inspection: No visible deformity of the chest wall Palpation: Trachea is mildly deviated to the right, bilateral symmetric expansion Percussion: Bilateral tympanic percussion note both anterior and posteriorly Auscultation: Bilateral clear to auscultation both anterior and posteriorly, no crackles wheezing or rhonchi Cardiovascular: rrr, nl s1s2, no mrg Abdomen: soft, nt, nd, no r/g, bs+ Extremities: pulses +, swelling in right thigh and leg : no CVA tenderness Skin: intact, no rash MSK: no back or neck pain Neurologic: grossly intact Data 05/17/23 04:09 05/17/23 04:09 Other Labs: Radiology Impressions Venous Duplex 05/17/23 10:16 IMPRESSION: Extensive DVT of the right leg along with thrombosis of the greater saphenous vein ADDENDUM: 05/17/23 1113 COMMENT: THIS REPORT CONTAINS FINDINGS THAT MAY BE CRITICAL TO PATIENT CARE. The exam findings were verbally communicated by me to STEVEN BARCLAY via telephone conference at 11:11 AM COMPOSITION FLOOR [employer]AYER on 05/17/2023. The findings were acknowledged and understood. Laboratory Results WBC 10.69 10^3/uL (3.29-11.43) 05/17/23 04:09 RBC 3.48 10^6/uL (3.85-5.65) L 05/17/23 04:09 Hgb 11.60 g/dL (11.27-16.99) 05/17/23 04:09 Hct 35.8 % (37-53) L 05/17/23 04:09 MCV 102.9 fl (82-101) H 05/17/23 04:09 MCH 33.3 pg (27-33) H 05/17/23 04:09 MCHC 32.4 g/dL (30-55) 05/17/23 04:09 RDW 12.3 % (12.1-15.1) 05/17/23 04:09 Plt Count 332 10^3/cmm (157-399) 05/17/23 04:09 MPV 10.4 fL (7.4-10.4) 05/17/23 04:09 Neut % (Auto) 73.5 % 05/17/23 04:09 Lymph % (Auto) 10.8 % 05/17/23 04:09 Chaves % (Auto) 14.6 % 05/17/23 04:09 Eos % (Auto) 0.4 % 05/17/23 04:09 Baso % (Auto) 0.2 % 05/17/23 04:09 Neut # (Auto) 7.87 10^3/uL (1.8-7.7) H 05/17/23 04:09 Lymph # (Auto) 1.2 10^3/uL (0.8-4.8) 05/17/23 04:09 Chaves # (Auto) 1.6 10^3/uL (0.2-0.9) H 05/17/23 04:09 Eos # (Auto) 0.0 10^3/uL (0.0-0.8) 05/17/23 04:09 Baso # (Auto) 0.0 10^3/uL (0.0-0.1) 05/17/23 04:09 Nucleated RBC % (auto) 0 % 05/17/23 04:09 Nucleated RBCs # 0.0 /100WBC 05/17/23 04:09 APTT 36.7 SECONDS (23.9-36.7) 05/16/23 19:40 D-Dimer >= 20.00 ug/mLFEU (0-0.59) H 05/15/23 21:25 Sodium 136 mmol/L (136-145) 05/17/23 04:09 Potassium 4.8 mmol/L (3.5-5.1) 05/17/23 04:09 Chloride 97 mmol/L (98-107) L 05/17/23 04:09 Carbon Dioxide 28 mmol/L (22-29) 05/17/23 04:09 Anion Gap 15.8 (5-19) 05/17/23 04:09 BUN 16 mg/dL (6-20) 05/17/23 04:09 Creatinine 1.4 mg/dL (0.7-1.2) H 05/17/23 04:09 GFR Calculation 56.4 mL/min (90-130) L 05/17/23 04:09 Glucose 96 mg/dL (65-115) 05/17/23 04:09 Estimat Average Glucose 108 05/16/23 00:59 Hemoglobin A1c 5.4 % (4.0-6.0) 05/16/23 00:59 Calculated Osmolality 283 mOsm/kg (285-295) L 05/17/23 04:09 Calcium 10.0 mg/dL (8.5-10.5) 05/17/23 04:09 Phosphorus 2.8 mg/dL (2.5-4.5) 05/16/23 00:59 Magnesium 1.7 mg/dL (1.7-2.3) 05/16/23 00:59 Total Bilirubin 1.3 mg/dL (0.15-1.2) H 05/16/23 00:59 GGT 415 U/L (8-61) H 05/15/23 18:42 AST 39 U/L (0-40) 05/16/23 00:59 ALT 79 U/L (0-41) H 05/16/23 00:59 Alkaline Phosphatase 397 U/L (40-130) H 05/16/23 00:59 Troponin T Baseline 24 ng/L (0-15) H 05/15/23 18:42 Troponin T 120 Minute 24.13 ng/L (0-15) H 05/15/23 21:25 Delta Troponin T 0.13 ABS# (0-10) 05/15/23 21:25 Troponin T Hi Sens 6Hr 24.19 ng/L (0-15) H 05/16/23 00:59 Troponin T Hi Sens 6Hr Delta 0.19 ng/L (0-12) 05/16/23 00:59 NT-Pro-B Natriuret Pep 182 pg/mL (0-125) H 05/16/23 00:59 Total Protein 6.7 g/dL (6.6-8.7) 05/16/23 00:59 Albumin 3.7 g/dL (3.5-5.2) 05/16/23 00:59 Globulin 3.0 g/dL (1.3-4.6) 05/16/23 00:59 Triglycerides 95 mg/dL (0-150) 05/16/23 00:59 Cholesterol 170 mg/dL (0-200) 05/16/23 00:59 LDL Cholesterol, Calc 106 mg/dL (50-129) 05/16/23 00:59 HDL Cholesterol 45 mg/dL (60-100) L 05/16/23 00:59 LDL/HDL Ratio 2.36 RATIO (0.00-3.22) 05/16/23 00:59 Cholesterol/HDL Ratio 3.78 mg/dL (1.0-5.00) 02 00:59 Lipase 23 U/L (13-60) 05/15/23 18:42 Procalcitonin 0.09 ng/mL (0-0.5) 05/15/23 18:42 TSH 0.24 uIU/mL (0.27-4.20) L 05/16/23 00:59 Adenovirus (PCR) Not detected (NOT DETECT) 05/16/23 16:35 C. pneumoniae DNA (PCR) Not detected (NOT DETECT) 05/16/23 16:35 Coronavirus 229E (PCR) Not detected (NOT DETECT) 05/16/23 16:35 Human Metapneumovir PCR Not detected (NOT DETECT) 05/16/23 16:35 Influenza A (H1) PCR Not detected (NOT DETECT) 05/16/23 16:35 Influ A (H1/09) PCR Not detected (NOT DETECT) 05/16/23 16:35 Influenza A (H3) PCR Not detected (NOT DETECT) 05/16/23 16:35 Influenza Type A (PCR) Not detected (NOT DETECT) 05/16/23 16:35 Influenza Type B (PCR) Not detected (NOT DETECT) 05/16/23 16:35 M. pneumoniae (PCR) Not detected (NOT DETECT) 05/16/23 16:35 Parainfluenza 1 (PCR) Not detected (NOT DETECT) 05/16/23 16:35 Parainfluenza 2 (PCR) Not detected (NOT DETECT) 05/16/23 16:35 Parainfluenza 3 (PCR) Not detected (NOT DETECT) 05/16/23 16:35 Parainfluenza 4 (PCR) Not detected (NOT DETECT) 05/16/23 16:35 RSV Type A (PCR) Not detected (NOT DETECT) 05/16/23 16:35 RSV Type B (PCR) Not detected (NOT DETECT) 05/16/23 16:35 Entero/Rhino (PCR) Not detected (NOT DETECT) 05/16/23 16:35 SARS-CoV-2 (PCR) Not detected (NOT DETECT) 05/16/23 16:35 A&P Assessment and plan (1) Acute DVT (deep venous thrombosis): Venous Doppler 05/17/2023-extensive DVT of the right leg along with thrombosis of the greater saphenous vein Patient denied any respiratory distress, chest pain, he is saturating 94% on room air His BNP is 182 slightly elevated troponin with normal 2-hour delta.; Echo no evidence of right heart strain Patient had a history of chronic left leg DVT for which she is anticoagulation was stopped in March 2023 by his surfacing machine operator in [facility] Patient is on heparin drip-recommended to switch to Lovenox for 3 months and later switched to oral anticoagulation indefinitely; send for antiphospholipid antibodies to check for acquired thrombophilia-however it may be false positive given active clot; but negative test will rule out APL Given his extensive clot burden-he will benefit from thrombolysis-recommended to transfer patient to facility with interventional radiology evaluation and intervention Qualifiers: DVT location: lower extremity Affected thrombotic vein of extremity: femoral Laterality: right Qualified Code(s): I82.411 - Acute embolism and thrombosis of right femoral vein (2) Status post lung transplantation: In 2021-patient suffered from COVID-19 pneumonia and was transferred to [place] for increasing oxygen requirements-where he was intubated and mechanically ventilated and later transferred to [facility] for ECMO as well as bilateral lung transplantation. Subsequently underwent bilateral lung transplant for COVID-19 ARDS on 08/27/2021 Followed by washout and bilateral wedge resection (right middle lobe, lingula ) on 08/28/2021-followed by chest closure and second RML resection on 08/30/2021. Patient was for over 200 days at tertiary level hospital, requiring double lung transplant, currently on multiple immunosuppressive medications. -# S/p bilateral lung transplant for COVID-19 [id number] with wedge resection (right middle lobe, lingula) on 08/28/2020 s/p chest closure and second RML resection 08/30/2021 -Post transplant bronchoscopy 11/09/2021-showed right anastomosis ischemia and granulation tissue causing 50% stenosis cultures growing PSA with transbronchial biopsy no evidence of ACR-s/p 21 days IV cefepime November 2021; repeat bronchoscopy 12/10/2021-ischemia resolved, no secretions. Growing Pseudomonas. Also received in tobramycin 150 mg 1 month on 1 month of for Pseudomonas colonization -1 year bronchoscopy August 2022-negative for ACR, negative for Pseudomonas, IF stains negative. Negative bacterial, fungal, AFB.--Is clinically doing very well. His PFTs are stable. -His most recent transplant pulmonary visit at [facility] was in March 2023- -his spirometry March 2023 did not show any significant change with FEV1 2.24 L 58% predicted and FVC 2.96 L 63% predicted FEV1/FVC 75 - Patient is currently on For immunosuppression: -Myfortic 360 mg twice [id number] due to prior leukopenia (previously on MMF which caused diarrhea) -Tacrolimus 1 Mg a.m. and 0.5 Mg p.m., -She was started on azithromycin for CLAD prophylaxis -For PCP prophylaxis: atovaquone 1500 Mg p.o. daily (switched from Bactrim for rash? Sulfa allergy history) -For CMV D +/R-: Valacyclovir 500 Mg p.o. 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 -He was started on Lovenox 60 Mg twice daily-Worsening left thigh pain-repeat Doppler 11/20/2021-showed LLE clot extended.-Increased Lovenox to 80 Mg twice daily. -Repeat lower extremity Doppler 01/22/2022-still evidence of acute occlusive DVT noted within the left proximal to mid femoral vein, left distal femoral vein and left popliteal vein. There is evidence of scarring in the left common femoral vein. -He was switched to Eliquis.Unfortunately follow-up venous Doppler studies from 05/06/2022, August 2022, October 2022 showed evidence of chronic occlusive DVT in left proximal femoral vein to distal femoral vein and left popliteal vein. No evidence of DVT in right lower extremity. -Bottom Buffer at [facility]-recommended low-dose Eliquis 2.5 Mg twice daily until February 2023. -During his follow-up visit to [facility] March 2023-ultrasound 03/31/2023 did not show any evidence of acute DVT in bilateral lower extremity but there is evidence of chronic occlusive DVT noted in left proximal-distal femoral vein; nonocclusive DVT in the left popliteal vein.-He was evaluated by surfacing machine operator who recommended to discontinue apixaban. Qualifiers: Affected thrombotic vein of extremity: femoral Chronicity: chronic Qualified Code(s): I82.512 - Chronic embolism and thrombosis of left femoral vein Consult Attestations Medical Necessity Statement: Awaiting transfer Coding Level of Care Code Acute Code for [facility] Fwd Diagnoses Acute deep vein thrombosis (DVT) of femoral vein of right lower extremity I82.411 DVT location: lower extremity Affected thrombotic vein of extremity: femoral Laterality: right Status post lung transplantation Z94.2 Chronic deep vein thrombosis (DVT) of femoral vein of left lower extremity I82.512 Affected thrombotic vein of extremity: femoral Chronicity: chronic Time Spent (min) 55
--- NOTE | 2023-05-17 11:17 | PM.TDS ---
Transfer Summary Providers Date of Admission: 05/15/23 20:17 Date of Discharge/Transfer: 05/17/23 Attending Provider at Admission: Mike Kelley MD Attending Provider at Transfer: Steven Barclay MD Primary Care Provider: GUERLINE Saini Transfer Plans: Anticipated date of transfer: 05/17/23. Diagnoses at Discharge Discharge Diagnosis (1) Right leg DVT: Status: Acute (2) Acute DVT (deep venous thrombosis): Status: Acute (3) Immunosuppression: Status: Acute (4) Status post lung transplantation: Status: Acute Reason for Visit Reason for Visit swelling and pain right leg Hospital Course Hospital Course moreno Rangel is a 37 year old male with a past medical history of severe COVID-19 pneumonia, acute respiratory distress syndrome, ECMO, being hospitalized for over 200 days at tertiary level hospital, requiring double lung transplant, currently on multiple immunosuppressive medications, history of DVT, completed anticoagulation, off anticoagulation as back as February, history of gallbladder sludge, follows specialist at [facility], follows Dr. Modi here at [facility], history of pretransplant Enterobacter tracheobronchitis, history of A-fib with RVR, who presents came to our hospital for right leg swelling which started 24 hours before his evaluation in the ER, he was diagnosed with extensive DVT of right leg, considering clot burden his transplant team was consulted who recommended Lovenox for 3 months and then switching to Eliquis. However considering significant clot burden and great saphenous vein occlusion we are reaching out to vascular/IR for thrombolysis. Patient will be considered high risk for migration of clot causing PE or saddle embolism. This was conveyed very frankly to the patient and his . In the hospital he remained on heparin drip with frequent monitoring of APTT. Please note we have sent acquired thrombophilia workup of antiphospholipid antibodies which is pending. We also wait 2 to 3 days before getting tacrolimus level. His chronic kidney disease has not worsened during hospitalization. Report of venous Doppler done on admission Extensive occlusive thrombus throughout the right lower extremity including the right common femoral, superficial femoral, deep femoral, popliteal veins and posterior tibial and peroneal veins and greater saphenous vein. Physical Exam Narrative: Awake and alert Right leg swelling with mild erythema medial side of right thigh Awake and alert Currently on room air No active chest pain Pleasant cooperative at the bedside TS Data Studies Completed and Pending Pending at discharge Category Date Time Status Antiphospholipid Antibody Daniels Routine Lab 05/17/23 10:05 Received FK 506 (Tacrolimus) Routine Lab 05/16/23 13:13 Received Platelet Count Q2D Lab 05/19/23 04:00 Ordered Platelet Count Q2D Lab 05/21/23 04:00 Ordered Completed Studies During Hospitalization Category [place] [id number] Stat Ultrasound 05/17/23 10:16 Completed CV. echo complete* [id number] Routine Ultrasound 05/15/23 21:02 Completed US gall bladder [id number] Stat Ultrasound 05/16/23 21:18 Completed US venous duplex lower extremity RT [CV venous duplex Ultrasound 05/15/23 17:[address] [place] [id number]] Stat Laboratory Last Values WBC 10.69 10^3/uL (3.29-11.43) 05/17/23 04:09 RBC 3.48 10^6/uL (3.85-5.65) L 05/17/23 04:09 Hgb 11.60 g/dL (11.27-16.99) 05/17/23 04:09 Hct 35.8 % (37-53) L 05/17/23 04:09 MCV 102.9 fl (82-101) H 05/17/23 04:09 MCH 33.3 pg (27-33) H 05/17/23 04:09 MCHC 32.4 g/dL (30-55) 05/17/23 04:09 RDW 12.3 % (12.1-15.1) 05/17/23 04:09 Plt Count 332 10^3/cmm (157-399) 05/17/23 04:09 MPV 10.4 fL (7.4-10.4) 05/17/23 04:09 Neut % (Auto) 73.5 % 05/17/23 04:09 Lymph % (Auto) 10.8 % 05/17/23 04:09 [place] % (Auto) 14.6 % 05/17/23 04:09 Eos % (Auto) 0.4 % 05/17/23 04:09 Baso % (Auto) 0.2 % 05/17/23 04:09 Neut # (Auto) 7.87 10^3/uL (1.8-7.7) H 05/17/23 04:09 Lymph # (Auto) 1.2 10^3/uL (0.8-4.8) 05/17/23 04:09 [place] # (Auto) 1.6 10^3/uL (0.2-0.9) H 05/17/23 04:09 Eos # (Auto) 0.0 10^3/uL (0.0-0.8) 05/17/23 04:09 Baso # (Auto) 0.0 10^3/uL (0.0-0.1) 05/17/23 04:09 Nucleated RBC % (auto) 0 % 05/17/23 04:09 Nucleated RBCs # 0.0 /100WBC 05/17/23 04:09 APTT 36.7 SECONDS (23.9-36.7) 05/16/23 19:40 D-Dimer >= 20.00 ug/mLFEU (0-0.59) H 05/15/23 21:25 Sodium 136 mmol/L (136-145) 05/17/23 04:09 Potassium 4.8 mmol/L (3.5-5.1) 05/17/23 04:09 Chloride 97 mmol/L (98-107) L 05/17/23 04:09 Carbon Dioxide 28 mmol/L (22-29) 05/17/23 04:09 Anion Gap 15.8 (5-19) 05/17/23 04:09 BUN 16 mg/dL (6-20) 05/17/23 04:09 Creatinine 1.4 mg/dL (0.7-1.2) H 05/17/23 04:09 GFR Calculation 56.4 mL/min (90-130) L 05/17/23 04:09 Glucose 96 mg/dL (65-115) 05/17/23 04:09 Estimat Average Glucose 108 05/16/23 00:59 Hemoglobin A1c 5.4 % (4.0-6.0) 05/16/23 00:59 Calculated Osmolality 283 mOsm/kg (285-295) L 05/17/23 04:09 Calcium 10.0 mg/dL (8.5-10.5) 05/17/23 04:09 Phosphorus 2.8 mg/dL (2.5-4.5) 05/16/23 00:59 Magnesium 1.7 mg/dL (1.7-2.3) 05/16/23 00:59 Total Bilirubin 1.3 mg/dL (0.15-1.2) H 05/16/23 00:59 GGT 415 U/L (8-61) H 05/15/23 18:42 AST 39 U/L (0-40) 05/16/23 00:59 ALT 79 U/L (0-41) H 05/16/23 00:59 Alkaline Phosphatase 397 U/L (40-130) H 05/16/23 00:59 Troponin T Baseline 24 ng/L (0-15) H 05/15/23 18:42 Troponin T 120 Minute 24.13 ng/L (0-15) H 05/15/23 21:25 Delta Troponin T 0.13 ABS# (0-10) 05/15/23 21:25 Troponin T Hi Sens 6Hr 24.19 ng/L (0-15) H 05/16/23 00:59 Troponin T Hi Sens 6Hr Delta 0.19 ng/L (0-12) 05/16/23 00:59 NT-Pro-B Natriuret Pep 182 pg/mL (0-125) H 05/16/23 00:59 Total Protein 6.7 g/dL (6.6-8.7) 05/16/23 00:59 Albumin 3.7 g/dL (3.5-5.2) 05/16/23 00:59 Globulin 3.0 g/dL (1.3-4.6) 05/16/23 00:59 Triglycerides 95 mg/dL (0-150) 05/16/23 00:59 Cholesterol 170 mg/dL (0-200) 05/16/23 00:59 LDL Cholesterol, Calc 106 mg/dL (50-129) 05/16/23 00:59 HDL Cholesterol 45 mg/dL (60-100) L 05/16/23 00:59 LDL/HDL Ratio 2.36 RATIO (0.00-3.22) 05/16/23 00:59 Cholesterol/HDL Ratio 3.78 mg/dL (1.0-5.00) 05/16/23 00:59 Lipase 23 U/L (13-60) 05/15/23 18:42 Procalcitonin 0.09 ng/mL (0-0.5) 05/15/23 18:42 TSH 0.24 uIU/mL (0.27-4.20) L 05/16/23 00:59 Adenovirus (PCR) Not detected (NOT DETECT) 05/16/23 16:35 C. pneumoniae DNA (PCR) Not detected (NOT DETECT) 05/16/23 16:35 Coronavirus 229E (PCR) Not detected (NOT DETECT) 05/16/23 16:35 Human Metapneumovir PCR Not detected (NOT DETECT) 05/16/23 16:35 Influenza A (H1) PCR Not detected (NOT DETECT) 05/16/23 16:35 Influ A (H1/09) PCR Not detected (NOT DETECT) 05/16/23 16:35 Influenza A (H3) PCR Not detected (NOT DETECT) 05/16/23 16:35 Influenza Type A (PCR) Not detected (NOT DETECT) 05/16/23 16:35 Influenza Type B (PCR) Not detected (NOT DETECT) 05/16/23 16:35 M. pneumoniae (PCR) Not detected (NOT DETECT) 05/16/23 16:35 Parainfluenza 1 (PCR) Not detected (NOT DETECT) 05/16/23 16:35 Parainfluenza 2 (PCR) Not detected (NOT DETECT) 05/16/23 16:35 Parainfluenza 3 (PCR) Not detected (NOT DETECT) 05/16/23 16:35 Parainfluenza 4 (PCR) Not detected (NOT DETECT) 05/16/23 16:35 RSV Type A (PCR) Not detected (NOT DETECT) 05/16/23 16:35 RSV Type B (PCR) Not detected (NOT DETECT) 05/16/23 16:35 Entero/Rhino (PCR) Not detected (NOT DETECT) 05/16/23 16:35 SARS-CoV-2 (PCR) Not detected (NOT DETECT) 05/16/23 16:35 Radiology Impressions Venous Duplex 05/17/23 10:16 IMPRESSION: Extensive DVT of the right leg along with thrombosis of the greater saphenous vein ADDENDUM: 05/17/23 1113 COMMENT: THIS REPORT CONTAINS FINDINGS THAT MAY BE CRITICAL TO PATIENT CARE. The exam findings were verbally communicated by me to STEVEN BARCLAY via telephone conference at 11:11 AM [employer] on 05/17/2023. The findings were acknowledged and understood. Recent Clincial Data Last Vital Signs Temp 98.3 F 05/17/23 07:48 Pulse 89 05/17/23 08:14 Resp 16 05/17/23 08:14 BP 121/77 05/17/23 07:48 Pulse Ox 97 05/17/23 08:14 O2 Del Method Room Air 05/17/23 08:14 FiO2 21 05/15/23 21:18 Vital Signs Temp Pulse Resp BP Pulse Ox O2 Del Method 05/17/23 08:14 89 16 97 Room Air 05/17/23 08:09 16 05/17/23 08:00 89 16 05/17/23 07:48 98.3 F 94 19 H 121/77 96 Room Air 05/17/23 06:00 95 05/17/23 05:04 18 05/17/23 04:00 99.9 F H 86 17 128/79 98 Room Air 05/17/23 02:17 17 96 05/16/23 23:51 98.9 F 87 17 108/70 96 Room Air Intake & Output/Weight 05/15/23 05/16/23 05/17/23 05/18/23 06:59 06:59 06:59 06:59 Intake Total 799.67 / 799.67 360 / 360 Balance 799.67 / 799.67 360 / 360 Weight 83.007 kg 83.007 kg Vitals Last Vital Signs Temp 98.3 F 05/17/23 07:48 Pulse 89 05/17/23 08:14 Resp 16 05/17/23 08:14 BP 121/77 05/17/23 07:48 Pulse Ox 97 05/17/23 08:14 O2 Del Method Room Air 05/17/23 08:14 FiO2 21 05/15/23 21:18 TS Medications Medications Acetaminophen (Acetaminophen 325 Mg Tablet) 650 mg PO Q6H PRN PRN Reason: Mild/Mod Pain Or Temp >/= 101 Albuterol Sulfate (Albuterol 2.5 Mg/3 Ml Neb) 2.5 mg INHALATION Q4H.RESPIRATORY PRN PRN Reason: SHORTNESS OF BREATH Azithromycin (Azithromycin 250 Mg Tablet) 250 mg PO DAILY VALERY; Protocol Last Admin: 05/16/23 08:06 Dose: Not Given Heparin Sodium (Porcine) (Heparin 5,000 Unit/Ml Inj 1 Ml) 0 unit IV PRN PRN; Protocol PRN Reason: Heparin weight-base protocol Heparin Sodium/Sodium Chloride (Heparin Drip) 25,000 unit in 500 mls @ 0 mls/hr IV .Q0M COUNTS INCLUDE 234 BEDS AT THE [facility]; Protocol Metoprolol Succinate (Metoprolol Succinate Er (24 Hr) 50 Mg Tablet) 100 mg PO DAILY COUNTS INCLUDE 234 BEDS AT THE [facility] Last Admin: 05/16/23 09:15 Dose: Not Given Morphine Sulfate (Morphine 4 Mg/Ml Sdv 1 Ml) 2 mg IVP Q4H PRN PRN Reason: SEVERE PAIN Last Admin: 05/17/23 08:09 Dose: 2 mg Non-Formulary Medication (Atovaquone) 1,500 mg PO DAILY COUNTS INCLUDE 234 BEDS AT THE [facility] Last Admin: 05/16/23 09:13 Dose: Not Given Non-Formulary Medication (Lokelma) 10 g PO WEEKLY COUNTS INCLUDE 234 BEDS AT THE [facility] Non-Formulary Medication (Mycophenolate Sodium [Myfortic]) 360 mg PO BID COUNTS INCLUDE 234 BEDS AT THE [facility] Last Admin: 05/16/23 19:43 Dose: Not Given Non-Formulary Medication (Letermovir [Prevymis]) 480 mg PO DAILY COUNTS INCLUDE 234 BEDS AT THE [facility] Last Admin: 05/16/23 09:13 Dose: Not Given Non-Formulary Medication (Ursodiol) 300 mg PO BID COUNTS INCLUDE 234 BEDS AT THE [facility] Last Admin: 05/16/23 19:44 Dose: Not Given Ondansetron HCl (Ondansetron 2 Mg/Ml Sdv 2 Ml) 4 mg IVP Q8H PRN PRN Reason: vomiting, or N/V if npo Last Admin: 05/17/23 08:09 Dose: 4 mg Oxycodone HCl (Oxycodone 5 Mg Ir Tab/Cap) 5 mg PO Q6H PRN PRN Reason: MODERATE PAIN Pantoprazole Sodium (Pantoprazole 40 Mg Sdv) 40 mg IVP Q24H COUNTS INCLUDE 234 BEDS AT THE [facility] Last Admin: 05/16/23 21:01 Dose: Not Given Prednisone (Prednisone 10 Mg Tablet) 10 mg PO DAILY COUNTS INCLUDE 234 BEDS AT THE [facility] Last Admin: 05/16/23 08:06 Dose: Not Given Tacrolimus (Tacrolimus 0.5 Mg Capsule) 1 mg PO QAM COUNTS INCLUDE 234 BEDS AT THE [facility] Last Admin: 05/17/23 06:12 Dose: Not Given Tacrolimus (Tacrolimus 0.5 Mg Capsule) 0.5 mg PO QPM COUNTS INCLUDE 234 BEDS AT THE [facility] Last Admin: 05/16/23 19:44 Dose: Not Given Valacyclovir HCl (Valacyclovir 1,000 Mg Tablet) 500 mg PO DAILY COUNTS INCLUDE 234 BEDS AT THE [facility] Last Admin: 05/16/23 09:14 Dose: Not Given Discontinued Medications Enoxaparin Sodium (Enoxaparin 80 Mg/0.8 Ml Syringe) 80 mg SUBCUT Q12H COUNTS INCLUDE 234 BEDS AT THE [facility] Last Admin: 05/17/23 04:24 Dose: 80 mg Heparin Sodium (Porcine) (Heparin 5,000 Unit/Ml Inj 1 Ml) 0 unit IV PRN PRN; Protocol PRN Reason: Heparin weight-base protocol Last Admin: 05/16/23 12:49 Dose: 4,200 unit Heparin Sodium/Sodium Chloride (Heparin Drip) 25,000 unit in 500 mls @ 19.595 mls/hr IV .Q24H COUNTS INCLUDE 234 BEDS AT THE [facility] Last Admin: 05/15/23 19:36 Dose: 12 unit/kg/hr, 19.6 mls/hr Heparin Sodium/Sodium Chloride (Heparin Drip) 25,000 unit in 500 mls @ 0 mls/hr IV .Q0M COUNTS INCLUDE 234 BEDS AT THE [facility]; Protocol Last Titration: 05/16/23 12:54 Dose: 16.9 unit/kg/hr, 27.6 mls/hr Lidocaine HCl 5 ml/ Potassium (Chloride) 105 mls @ 26.25 mls/hr IV ONCE ONE Stop: 05/17/23 11:48 Morphine Sulfate (Morphine 4 Mg/Ml Sdv 1 Ml) 2 mg IVP ONCE ONE Stop: 05/17/23 04:48 Last Admin: 05/17/23 05:04 Dose: 2 mg Allergies Sulfa (Sulfonamide Antibiotics) Allergy (Intermediate, Verified 11/13/22 10:58) rash NSAIDS (Non-Steroidal Anti-Inflamma Allergy (Unknown, Verified 11/13/22 10:58) D/T transplant Home Medications albuterol sulfate 2.5 mg/3 mL (0.083 %) solution for nebulization 2.5 mg inhalation Q4H PRN UNKNOWN 03/27/22 [History Confirmed 05/16/23] atovaquone 750 mg/5 mL oral suspension 1,500 mg PO DAILY 03/27/22 [History Confirmed 05/16/23] cetirizine 10 mg tablet (All Day Allergy (cetirizine)) 10 mg PO DAILY 03/27/22 [History Confirmed 05/16/23] fluticasone propionate 50 mcg/actuation nasal spray,suspension (Allergy Relief (fluticasone)) 1 spray intranasal BID 03/27/22 [History Confirmed 05/16/23] magnesium oxide-magnesium amino acid chelate 133 mg tablet (Md-Lkhz-Ctkxfcc) 399 mg PO BID 03/27/22 [History Confirmed 05/16/23] prednisone 10 mg tablet 10 mg PO DAILY 03/27/22 [History Confirmed 05/16/23] sodium chloride 3.5 % for nebulization 4 ml inhalation Q8H 03/27/22 [History Confirmed 05/16/23] sodium zirconium cyclosilicate 10 gram oral powder packet (Lokelma) 10 g PO .every other day 03/27/22 [History Confirmed 05/16/23] tacrolimus 1 mg capsule, immediate-release See Rx Instructions .Route .COMPLEX 03/27/22 [History Confirmed 05/16/23] ursodiol 300 mg capsule 300 mg PO BID 03/27/22 [History Confirmed 05/16/23] valacyclovir 500 mg tablet 500 mg PO DAILY 03/27/22 [History Confirmed 05/16/23] acetaminophen 500 mg tablet 500 mg PO Q6H PRN Pain 04/16/22 [History Confirmed 05/16/23] lansoprazole 30 mg capsule,delayed release (Prevacid) 30 mg PO DAILY 04/16/22 [History Confirmed 05/16/23] letermovir 480 mg tablet (Prevymis) 480 mg PO DAILY 04/16/22 [History Confirmed 05/16/23] mycophenolate sodium 360 mg tablet,delayed release (Myfortic) 360 mg PO BID 04/16/22 [History Confirmed 05/16/23] metoprolol succinate 100 mg tablet,extended release 24 hr 100 mg PO DAILY 05/16/23 [History Confirmed 05/16/23] enoxaparin 80 mg/0.8 mL subcutaneous syringe (Lovenox) 80 mg (0.8 mL) SUBCUT Q12H 1 week #11.2 mL 05/17/23 [Rx] Discharge Plan Discharge Patient Disposition: Xfer Other Condition: Stable Prescriptions: New Lovenox 80 mg/0.8 mL syringe 80 mg SUBCUT Q12H 7 Days Qty: 11.2 0RF Continued atovaquone 750 mg/5 mL suspension 1,500 mg PO DAILY Rx Instructions: must administer with food, preferably a high-fat meal cetirizine [All Day Allergy (cetirizine)] 10 mg tablet 10 mg PO DAILY fluticasone propionate [Allergy Relief (fluticasone)] 50 mcg/actuation spray,suspension 1 spray intranasal BID Rx Instructions: administer into each nostril sodium chloride 3.5 % solution for nebulization 4 ml inhalation Q8H Lokelma 10 gram powder in packet 10 g PO .every other day prednisone 10 mg tablet 10 mg PO DAILY ursodiol 300 mg capsule 300 mg PO BID valacyclovir 500 mg tablet 500 mg PO DAILY albuterol sulfate 2.5 mg /3 mL (0.083 %) solution for nebulization 2.5 mg inhalation Q4H PRN (Reason: UNKNOWN) Wt-Fgis-Mohshif 133 mg tablet 399 mg PO BID Rx Instructions: 266 mg at lunch time tacrolimus 1 mg capsule See Rx Instructions .ROUTE .COMPLEX Rx Instructions: TAKE 1 TABLET BY MOUTH IN THE MORNING AND 1/2 TABLET IN THE EVENING. mycophenolate sodium [Myfortic] 360 mg tablet,delayed release (DR/EC) 360 mg PO BID acetaminophen 500 mg tablet 500 mg PO Q6H PRN (Reason: Pain) Rx Instructions: 1-2 tablets every 6 hours as needed Prevymis 480 mg tablet 480 mg PO DAILY lansoprazole [Prevacid] 30 mg capsule,delayed release(DR/EC) 30 mg PO DAILY metoprolol succinate 100 mg tablet extended release 24 hr 100 mg PO DAILY Referrals: Brittanie Woody FNP [Primary Care Provider] - Ashanti Link MD [Family Provider] - Patient Instructions: Opioid Safety Transfer Attestations Time Spent in Transfer Care: greater than 30 min Quality Metrics Clinical Quality Measures [ No reported AMI, CVA or VTE this stay] Coding Level of Care Code Acute Code for Chg Fwd Diagnoses Right leg DVT I82.401 Acute DVT (deep venous thrombosis) I82.409 Immunosuppression D84.9 Status post lung transplantation Z94.2
[2023-05-17] MEDS: heparin drip 25,000 UNIT/500 ML PREMIX 23.24 UNIT IV (12:04)
[2023-05-17] MEDS: oxyCODONE 5 mg IR Tab/Cap PO (12:15)
[2023-05-17 18:33] LABS: Partial Thromboplastin Time 35.4 SECONDS (23.9-36.7)
--- NOTE | 2023-05-17 19:30 | PC.NURSE ---
Report given to Abdi at [facility]
[2023-05-23 01:40] LABS: Beta 2 Glycoprotein IGA <2.0 U/mL; Beta 2 Glycoprotein IGG <2.0 U/mL; Beta 2 Glycoprotein IGM <2.0 U/mL; CARDIOLIPIN AB (IGA) <2.0 APL-U/mL; CARDIOLIPIN AB (IGG) <2.0 GPL-U/mL; CARDIOLIPIN AB (IGM) <2.0 MPL-U/mL
[2023-08-28 10:23] LABS: Phosphatidylserine IgG <9; Phosphatidylserine IgM <9
== END 2023-05-17 19:31 | disposition home or self-care (01) | DRG 300 ==
LOC: ER 18:33 → MEDSURG 20:17
PROVIDERS: Admitting Provider Family Medicine; Emergency Provider Emergency Medicine; Family Provider Internal Medicine Pulmonary Disease; PCP Nurse Practitioner Family; Visit Provider Internal Medicine
DX: I82.411 Acute embolism and thrombosis of right femoral vein (principal); D84.9 Immunodeficiency, unspecified; Z94.2 Lung transplant status; I82.431 Acute embolism and thrombosis of right popliteal vein; I82.441 Acute embolism and thrombosis of right tibial vein; I82.451 Acute embolism and thrombosis of right peroneal vein; I82.491 Acute embolism and thrombosis of other specified deep vein of right lower extremity; I82.512 Chronic embolism and thrombosis of left femoral vein; I82.532 Chronic embolism and thrombosis of left popliteal vein; Z79.01 Long term (current) use of anticoagulants; Z86.16 Personal history of COVID-19
CPT/HCPCS: 36415; 76705; 80048; 80053; 80061; 80197; 82977; 83036; 83516; 83690; 83735; 83880; 84100; 84145; 84443; 84484; 85025; 85378; 85730; 86146; 86147; 87486; 87581; 87633; 93306; 93971; 94664; 96365; 96372; 99285; J1644; J1650; J2270; J2405; J7507

== ENCOUNTER → 2023-06-04 12:55 | Outpatient (BNVA) | payer OTHER, SELFPAY | PROVIDERS: Family Provider Internal Medicine Pulmonary Disease; PCP Nurse Practitioner Family; Visit Provider Nurse Practitioner Family | DX: D84.9 Immunodeficiency, unspecified (principal); Z94.3 Heart and lungs transplant status | CPT/HCPCS: 80053; 80197; 85007; 85027; 87496 ==

== ENCOUNTER → 2023-06-12 10:52 | Outpatient (BNVA) | payer OTHER, SELFPAY | PROVIDERS: Family Provider Internal Medicine Pulmonary Disease; PCP Nurse Practitioner Family; Visit Provider Nurse Practitioner Family | DX: Z94.3 Heart and lungs transplant status (principal) | CPT/HCPCS: 80053; 80197; 85007; 85027; 87496 ==

== ENCOUNTER → 2023-07-15 09:28 | Outpatient (BNVA) | payer OTHER, SELFPAY | PROVIDERS: Family Provider Internal Medicine Pulmonary Disease; PCP Nurse Practitioner Family; Visit Provider Nurse Practitioner Family | DX: Z94.2 Lung transplant status (principal) | CPT/HCPCS: 80053; 80197; 83735; 85025; 87496 ==

== ENCOUNTER → 2023-08-18 08:53 | Outpatient (BNVA) | payer OTHER, SELFPAY | PROVIDERS: Family Provider Internal Medicine Pulmonary Disease; PCP Nurse Practitioner Family; Visit Provider Nurse Practitioner Family | DX: Z94.2 Lung transplant status (principal) | CPT/HCPCS: 80053; 80197; 85025; 87496 ==

== ENCOUNTER → 2023-10-14 10:35 | Outpatient (BNVA) | payer OTHER, SELFPAY | PROVIDERS: Family Provider Internal Medicine Pulmonary Disease; PCP Nurse Practitioner Family; Visit Provider Nurse Practitioner Family | DX: Z94.2 Lung transplant status (principal) | CPT/HCPCS: 80053; 80197; 83735; 85025; 87496 ==

== ENCOUNTER → 2023-11-03 11:16 | Outpatient (BNVA) | payer OTHER, SELFPAY | PROVIDERS: Family Provider Internal Medicine Pulmonary Disease; PCP Nurse Practitioner Family; Visit Provider Nurse Practitioner Family | DX: Z94.2 Lung transplant status (principal) | CPT/HCPCS: 80053; 80197; 83735; 85025; 87496 ==

== ENCOUNTER 2023-11-04 09:01 | Outpatient (CLI) | payer OTHER, SELFPAY | END 2023-11-04 09:02 | disposition home or self-care (01) | LOC: RT 09:05 | PROVIDERS: PCP Nurse Practitioner Family; Visit Provider Nurse Practitioner Family | DX: Z94.2 Lung transplant status (principal) | CPT/HCPCS: 94010 ==

== ENCOUNTER → 2023-11-18 08:46 | Outpatient (BNVA) | payer OTHER, SELFPAY | PROVIDERS: PCP Nurse Practitioner Family; Visit Provider Nurse Practitioner Family | DX: Z94.2 Lung transplant status (principal) | CPT/HCPCS: 80053; 80197; 83735; 85025; 87496 ==

== ENCOUNTER 2023-11-21 15:45 | Emergency (ER) | payer OTHER, SELFPAY ==
[2023-11-21] VITALS (7 sets, daily range): BP systolic 124–157; BP diastolic 89–93; PULSE 67–83; RESP 15–18; TEMP 36.8; O2SAT 97–100; BMI 29.5
--- NOTE | 2023-11-21 16:05 | XR_ITS ---
WS: [id number] XR chest 1V portable [id number] REASON FOR EXAM: reportedly COVID +; lung transplant pt FINDINGS: Previous sternotomy. The heart is at the upper limits of normal. No mediastinal abnormality is identified. The hemidiaphragms are significantly flattened. The central pulmonary arteries are prominent with rapid tapering peripherally. No acute pulmonary parenchymal or pleural abnormality is identified. No significant abnormality of the bony thorax. XR/XR chest 1V portable [id number] IMPRESSION: Postoperative chest with no acute abnormality. Flattening of the hemidiaphragms and prominence of the central pulmonary arteries.
--- NOTE | 2023-11-21 18:01 | PC.NURSE ---
this nurse assumed pt care at 1802 when he was brought to room 2.
--- NOTE | 2023-11-21 18:03 | ED_ITS ---
Documented by User: Prasanna Sahu DO 11/22/23 06:31 HPI - COVID General: Chief Complaint: COVID symptoms Stated Complaint: covid +, sent from dr office Time Seen by Provider: 11/21/23 16:11 History of Present Illness: 38-year-old male with a history of lung transplant. He previously had contracted COVID as a result of this he had a lung transplant in [facility]. He has since relocated to this area. He has been completely asymptomatic but a family member had been exposed to COVID so he got tested along with his son with a COVID home antigen test. It was positive. He contacted his transplant team in [place] they recommended that he have remdesivir for 3 days. They had called ahead of time and asked if we would do this as an outpatient advised him we do not do outpatient remdesivir infusions at our institution. Patient was directed here for evaluation he presents essentially completely asymptomatic no shortness of breath minimal cough no difficulty with breathing. COVID 19 common symptoms: negative fever(s), chills or dyspnea COVID 19 other sytmptoms: negative chest pain COVID Results: SARS-CoV-2 (PCR) Detected (NOT DETECT) A 11/21/23 17:20 Coronavirus Type 229E (PCR) Not detected (NOT DETECT) 11/21/23 17:20 Related Data Home Medications Medication Instructions Recorded Confirmed albuterol sulfate 2.5 mg/3 mL 2.5 mg inhalation Q4H PRN UNKNOWN 03/27/22 09/17/23 (0.083 %) solution for nebulization atovaquone 750 mg/5 mL oral 1,500 mg PO DAILY 03/27/22 09/17/23 suspension cetirizine 10 mg tablet (All Day 10 mg PO DAILY 03/27/22 09/17/23 Allergy (cetirizine)) fluticasone propionate 50 1 spray intranasal BID 03/27/22 09/17/23 mcg/actuation nasal spray,suspension (Allergy Relief (fluticasone)) magnesium oxide-magnesium amino 399 mg PO BID 03/27/22 09/17/23 acid chelate 133 mg tablet (Sw-Kdoj-Eyhixwq) prednisone 10 mg tablet 10 mg PO DAILY 03/27/22 09/17/23 sodium chloride 3.5 % for 4 ml inhalation Q8H 03/27/22 09/17/23 nebulization sodium zirconium cyclosilicate 10 10 g PO .every other day 03/27/22 09/17/23 gram oral powder packet (Lokelma) tacrolimus 1 mg capsule, See Rx Instructions .Route .COMPLEX 03/27/22 09/17/23 immediate-release ursodiol 300 mg capsule 300 mg PO BID 03/27/22 09/17/23 valacyclovir 500 mg tablet 500 mg PO DAILY 03/27/22 09/17/23 acetaminophen 500 mg tablet 500 mg PO Q6H PRN Pain 04/16/22 09/17/23 lansoprazole 30 mg capsule,delayed 30 mg PO DAILY 04/16/22 09/17/23 release (Prevacid) letermovir 480 mg tablet (Prevymis) 480 mg PO DAILY 04/16/22 09/17/23 mycophenolate sodium 360 mg 360 mg PO BID 04/16/22 09/17/23 tablet,delayed release (Myfortic) metoprolol succinate 100 mg 100 mg PO DAILY 05/16/23 09/17/23 tablet,extended release 24 hr apixaban 5 mg tablet (Eliquis) 5 mg PO BID 06/03/23 09/17/23 azithromycin 250 mg tablet 250 mg PO .3xweek 09/17/23 09/17/23 Previous Rx's Medication Instructions Recorded hydrocodone 7.5 mg-acetaminophen 1 tab PO Q6H PRN pain 5 days #20 06/03/23 325 mg tablet tabs Allergies Allergy/AdvReac Type Severity Reaction Status Date / Time Sulfa (Sulfonamide Allergy Intermediate rash Verified 09/17/23 09:08 Antibiotics) NSAIDS (Non-Steroidal Allergy Unknown D/T Verified 09/17/23 09:08 Anti-Inflamma transplant Review of Systems Const: Denies: fever(s) or chills Card: Denies: chest pain Resp: Denies: dyspnea GI: Denies: abdominal pain : Denies: dysuria, urinary frequency or urinary urgency Musc: Denies: neck pain or back pain Skin/Breast: Denies: rash PFSH ED PFSH: Medical History Right leg DVT Acute DVT (deep venous thrombosis) Immunosuppression Acute respiratory distress syndrome (ARDS) due to COVID-19 virus Hypertension Heart-lung transplant recipient Surgical History Status post lung transplantation History of transplantation, lung Family History Brother Hypertension Mother Hypertension Social History Smoking and tobacco/nicotine status: never used tobacco/nicotine Physical Exam Const: COMMON NORMALS: no acute distress GENERAL APPEARANCE: cooperative and comfortable ORIENTATION/CONSCIOUSNESS: Yes awake, Yes oriented to person, Yes oriented to place and Yes oriented to time HENMT: COMMON NORMALS: normocephalic, atraumatic and hearing grossly normal bilaterally HEAD & SCALP: normocephalic and atraumatic Resp: COMMON NORMALS: normal respiratory effort, No retractions, No use of accessory muscles and clear to auscultation bilaterally AUSCULTATION: clear to auscultation bilaterally Cardio: COMMON NORMALS: regular rate, regular rhythm and No murmurs present (Cardio) RATE: regular rate RHYTHM: regular rhythm GI: COMMON NORMALS: Soft to palpation and No hepatosplenomegaly present AUSCULTATION: Yes normoactive bowel sounds PALPATION: Yes Soft to palpation, No Tenderness to palpation present (GI), No Guarding due to palpation present (GI) and Yes No hepatosplenomegaly present Extremity: COMMON NORMALS: normal to inspection, capillary refill normal, no clubbing, cyanosis or edema, no calf tenderness and no pedal edema Neuro: SENSORIUM/ORIENTATION: Yes oriented to person, Yes oriented to place and Yes oriented to time Skin: COMMON NORMALS: no rashes or lesions noted GENERAL SKIN EXAM: no rashes or lesions noted Course Vital Signs: Vital signs: Vital Signs Temperature 98.2 F 11/21/23 20:58 Pulse Rate 77 11/21/23 20:58 Respiratory Rate 15 11/21/23 20:58 Blood Pressure 138/93 11/21/23 20:58 Pulse Oximetry 100 11/21/23 20:58 Oxygen Delivery Me thod Room Air 11/21/23 20:41 [facility] - COVID Medical Decision Making Care signed out to Dr. Jennings at change of shift. See final notes for diagnosis and disposition. Lab Data Radiology Impressions Chest X-Ray 11/21/23 16:05 IMPRESSION: Postoperative chest with no acute abnormality. Flattening of the hemidiaphragms and prominence of the central pulmonary arteries. Laboratory Results Coronavirus 229E (PCR) Not detected (NOT DETECT) 11/21/23 17:20 Human Metapneumovir PCR Not detected (NOT DETECT) 11/21/23 19:57 Entero/Rhino (PCR) Detected (NOT DETECT) A 11/21/23 19:57 SARS-CoV-2 (PCR) Detected (NOT DETECT) A 11/21/23 17:20 SARS-CoV-2 (PCR) Detected (NOT DETECT) A 11/21/23 17:20 Coronavirus Type 229E (PCR) Not detected (NOT DETECT) 11/21/23 17:20 Discharge Plan Discharge Patient Disposition: Home Clinical Impression: COVID-19, Rhinovirus Condition: Stable Prescriptions: No Action atovaquone 750 mg/5 mL suspension 1,500 mg PO DAILY Rx Instructions: must administer with food, preferably a high-fat meal cetirizine [All Day Allergy (cetirizine)] 10 mg tablet 10 mg PO DAILY fluticasone propionate [Allergy Relief (fluticasone)] 50 mcg/actuation spray,suspension 1 spray intranasal BID Rx Instructions: administer into each nostril sodium chloride 3.5 % solution for nebulization 4 ml inhalation Q8H Lokelma 10 gram powder in packet 10 g PO .every other day prednisone 10 mg tablet 10 mg PO DAILY ursodiol 300 mg capsule 300 mg PO BID valacyclovir 500 mg tablet 500 mg PO DAILY albuterol sulfate 2.5 mg /3 mL (0.083 %) solution for nebulization 2.5 mg inhalation Q4H PRN (Reason: UNKNOWN) Sc-Lpfr-Spumuwu 133 mg tablet 399 mg PO BID Rx Instructions: 266 mg at lunch time tacrolimus 1 mg capsule See Rx Instructions .ROUTE .COMPLEX Rx Instructions: TAKE 1 TABLET BY MOUTH IN THE MORNING AND 1/2 TABLET IN THE EVENING. Eliquis 5 mg tablet 5 mg PO BID hydrocodone-acetaminophen 7.5-325 mg tablet 1 tab PO Q6H PRN (Reason: pain) 5 Days Qty: 20 0RF mycophenolate sodium [Myfortic] 360 mg tablet,delayed release (DR/EC) 360 mg PO BID acetaminophen 500 mg tablet 500 mg PO Q6H PRN (Reason: Pain) Rx Instructions: 1-2 tablets every 6 hours as needed Prevymis 480 mg tablet 480 mg PO DAILY lansoprazole [Prevacid] 30 mg capsule,delayed release(DR/EC) 30 mg PO DAILY azithromycin 250 mg tablet 250 mg PO .3xweek Rx Instructions: Friday, Friday, Fridays metoprolol succinate 100 mg tablet extended release 24 hr 100 mg PO DAILY Discharge Orders: Discharge ED (Routine); Ordered 11/21/23 Ordered By: Tarun Jennings Referrals: Brittanie Woody FNP [Primary Care Provider] - 1 week Patient Instructions: COVID-19 (Coronavirus Disease 2019) (ED) Activity Restrictions/Additional Instructions: After speaking to the transplant team up in [facility] as well as Dr. Link in [place] we cannot come to a conclusion of what we are able to provide for you. Dr. Link said she would take it over from here and will contact you about what she wants you to do. If your symptoms start or you go downhill please feel free to return to the ER otherwise waiting till Dr. Link calls you. Coding Level of Care Code ED Bread Packer for Chg Fwd Documented by User: Tarun Jennings DO 11/21/23 20:46 HPI - COVID General: Chief Complaint: COVID symptoms Stated Complaint: covid +, sent from office Time Seen by Provider: 11/21/23 16:11 COVID Results: SARS-CoV-2 (PCR) Detected (NOT DETECT) A 11/21/23 17:20 Coronavirus Type 229E (PCR) Not detected (NOT DETECT) 11/21/23 17:20 Related Data Home Medications Medication Instructions Recorded Confirmed albuterol sulfate 2.5 mg/3 mL 2.5 mg inhalation Q4H PRN UNKNOWN 03/27/22 09/17/23 (0.083 %) solution for nebulization atovaquone 750 mg/5 mL oral 1,500 mg PO DAILY 03/27/22 09/17/23 suspension cetirizine 10 mg tablet (All Day 10 mg PO DAILY 03/27/22 09/17/23 Allergy (cetirizine)) fluticasone propionate 50 1 spray intranasal BID 03/27/22 09/17/23 mcg/actuation nasal spray,suspension (Allergy Relief (fluticasone)) magnesium oxide-magnesium amino 399 mg PO BID 03/27/22 09/17/23 acid chelate 133 mg tablet (Yl-Ltcu-Yajlony) prednisone 10 mg tablet 10 mg PO DAILY 03/27/22 09/17/23 sodium chloride 3.5 % for 4 ml inhalation Q8H 03/27/22 09/17/23 nebulization sodium zirconium cyclosilicate 10 10 g PO .every other day 03/27/22 09/17/23 gram oral powder packet (Lokelma) tacrolimus 1 mg capsule, See Rx Instructions .Route .COMPLEX 03/27/22 09/17/23 immediate-release ursodiol 300 mg capsule 300 mg PO BID 03/27/22 09/17/23 valacyclovir 500 mg tablet 500 mg PO DAILY 03/27/22 09/17/23 acetaminophen 500 mg tablet 500 mg PO Q6H PRN Pain 04/16/22 09/17/23 lansoprazole 30 mg capsule,delayed 30 mg PO DAILY 04/16/22 09/17/23 release (Prevacid) letermovir 480 mg tablet (Prevymis) 480 mg PO DAILY 04/16/22 09/17/23 mycophenolate sodium 360 mg 360 mg PO BID 04/16/22 09/17/23 tablet,delayed release (Myfortic) metoprolol succinate 100 mg 100 mg PO DAILY 05/16/23 09/17/23 tablet,extended release 24 hr apixaban 5 mg tablet (Eliquis) 5 mg PO BID 06/03/23 09/17/23 azithromycin 250 mg tablet 250 mg PO .3xweek 09/17/23 09/17/23 Previous Rx's Medication Instructions Recorded hydrocodone 7.5 mg-acetaminophen 1 tab PO Q6H PRN pain 5 days #20 06/03/23 325 mg tablet tabs Allergies Allergy/AdvReac Type Severity Reaction Status Date / Time Sulfa (Sulfonamide Allergy Intermediate rash Verified 09/17/23 09:08 Antibiotics) NSAIDS (Non-Steroidal Allergy Unknown D/T Verified 09/17/23 09:08 Anti-Inflamma transplant PFS ED [facility]: Medical History Right leg DVT Acute DVT (deep venous thrombosis) Immunosuppression Acute respiratory distress syndrome (ARDS) due to COVID-19 virus Hypertension Heart-lung transplant recipient Surgical History Status post lung transplantation History of transplantation, lung Family History Brother Hypertension Mother Hypertension Social History Smoking and tobacco/nicotine status: never used tobacco/nicotine Course Vital Signs: Vital signs: Vital Signs Temperature 98.2 F 11/21/23 20:58 Pulse Rate 77 11/21/23 20:58 Respiratory Rate 15 11/21/23 20:58 Blood Pressure 138/93 11/21/23 20:58 Pulse Oximetry 100 11/21/23 20:58 Oxygen Delivery Me thod Room Air 11/21/23 20:41 MDM - COVID Medical Decision Making Care signed out to Dr. Jennings at change of shift. See final notes for diagnosis and disposition. Patient back positive for entero/rhinovirus and COVID. These results was discussed with the patient. [place] lung transplant team was called talk to the on-call doc who said they do not do remdesivir as an outpatient and he does not know anywhere that does and patient is is asymptomatic so therefore he does not meet any inpatient criteria. He would recommend we do 10 days of Cipro hold his CellCept during this time and increase his prednisone to 40 mg a day for 3 days to 20 mg a day for 3 days then back down to his 10 mg a day. Discussed this with the patient patient on me to call Dr. Link in [place]. Dr. Link was called who absolutely did not want us to do this regimen and only 1 just do remdesivir. No matter what she said she was in the discussion with the docs up in [place] because she knew them personally and that is what they recommend but she could not provide me with any names of any docs that she talk to. Then Dr. Link said she would just take care of it herself and I informed her that this is okay and we will discharge him from the ER and she can take care of it however she wants. Differential Diagnosis Likely COVID 19 Medical Records I reviewed the patient's medical records. Lab Data Radiology Impressions Chest X-Ray 11/21/23 16:05 IMPRESSION: Postoperative chest with no acute abnormality. Flattening of the hemidiaphragms and prominence of the central pulmonary arteries. Laboratory Results Coronavirus 229E (PCR) Not detected (NOT DETECT) 11/21/23 17:20 Human Metapneumovir PCR Not detected (NOT DETECT) 11/21/23 19:57 Entero/Rhino (PCR) Detected (NOT DETECT) A 11/21/23 19:57 SARS-CoV-2 (PCR) Detected (NOT DETECT) A 11/21/23 17:20 SARS-CoV-2 (PCR) Detected (NOT DETECT) A 11/21/23 17:20 Coronavirus Type 229E (PCR) Not detected (NOT DETECT) 11/21/23 17:20 All radiology interpretation(s) finalized by discharge Discharge Plan Discharge Patient Disposition: Home Clinical Impression: COVID-19, Rhinovirus Condition: Stable Prescriptions: No Action atovaquone 750 mg/5 mL suspension 1,500 mg PO DAILY Rx Instructions: must administer with food, preferably a high-fat meal cetirizine [All Day Allergy (cetirizine)] 10 mg tablet 10 mg PO DAILY fluticasone propionate [Allergy Relief (fluticasone)] 50 mcg/actuation spray,suspension 1 spray intranasal BID Rx Instructions: administer into each nostril sodium chloride 3.5 % solution for nebulization 4 ml inhalation Q8H Lokelma 10 gram powder in packet 10 g PO .every other day prednisone 10 mg tablet 10 mg PO DAILY ursodiol 300 mg capsule 300 mg PO BID valacyclovir 500 mg tablet 500 mg PO DAILY albuterol sulfate 2.5 mg /3 mL (0.083 %) solution for nebulization 2.5 mg inhalation Q4H PRN (Reason: UNKNOWN) [id number]-Bmsw-Cpdxjzz 133 mg tablet 399 mg PO BID Rx Instructions: 266 mg at lunch time tacrolimus 1 mg capsule See Rx Instructions .ROUTE .COMPLEX Rx Instructions: TAKE 1 TABLET BY MOUTH IN THE MORNING AND 1/2 TABLET IN THE EVENING. Eliquis 5 mg tablet 5 mg PO BID hydrocodone-acetaminophen 7.5-325 mg tablet 1 tab PO Q6H PRN (Reason: pain) 5 Days Qty: 20 0RF mycophenolate sodium [Myfortic] 360 mg tablet,delayed release (DR/EC) 360 mg PO BID acetaminophen 500 mg tablet 500 mg PO Q6H PRN (Reason: Pain) Rx Instructions: 1-2 tablets every 6 hours as needed Prevymis 480 mg tablet 480 mg PO DAILY lansoprazole [Prevacid] 30 mg capsule,delayed release(DR/EC) 30 mg PO DAILY azithromycin 250 mg tablet 250 mg PO .3xweek Rx Instructions: Friday, Friday, Fridays metoprolol succinate 100 mg tablet extended release 24 hr 100 mg PO DAILY Discharge Orders: Discharge ED (Routine); Ordered 11/21/23 Ordered By: Tarun Jennings Referrals: Brittanie Woody FNP [Primary Care Provider] - 1 week Patient Instructions: COVID-19 (Coronavirus Disease 2019) (ED) Activity Restrictions/Additional Instructions: After speaking to the transplant team up in [facility] as well as Dr. Link in [place] we cannot come to a conclusion of what we are able to provide for you. Dr. Link said she would take it over from here and will contact you about what she wants you to do. If your symptoms start or you go downhill please feel free to return to the ER otherwise waiting till Dr. Link calls you. Coding Level of Care Code ED Bread Packer for Sandro Sanchez
[2023-11-21 19:25] LABS: Adenovirus Not Detected (NOT DETECT); Chlamydia Pneumoniae Not Detected (NOT DETECT); Coronavirus 229E,HKU1,NL63,OC4 Not Detected (NOT DETECT); Human Metapneumovirus Not Detected (NOT DETECT); Human Rhinovirus/Enterovirus Detected (NOT DETECT); Influenza A Not Detected (NOT DETECT); Influenza A H1 Not Detected (NOT DETECT); Influenza A H1-2009 Not Detected (NOT DETECT); Influenza A H3 Not Detected (NOT DETECT); Influenza B Not Detected (NOT DETECT); Mycoplasma Pneumoniae Not Detected (NOT DETECT); Parainfluenza Virus Type 1 Not Detected (NOT DETECT); Parainfluenza Virus Type 2 Not Detected (NOT DETECT); Parainfluenza Virus Type 3 Not Detected (NOT DETECT); Parainfluenza Virus Type 4 Not Detected (NOT DETECT); Respiratory Syncytial Virus A Not Detected (NOT DETECT); Respiratory Syncytial Virus B Not Detected (NOT DETECT)
[2023-11-21 19:57] LABS: SARS-COV-2 Detected (NOT DETECT)
[2023-11-21 19:57] LABS: Human Metapneumovirus Not Detected (NOT DETECT); Human Rhinovirus/Enterovirus Detected (NOT DETECT); Results from Genmark
== END 2023-11-21 20:54 | disposition home or self-care (01) ==
PROVIDERS: Emergency Provider Family Medicine; PCP Nurse Practitioner Family
DX: U07.1 COVID-19 (principal); B34.8 Other viral infections of unspecified site; Z79.01 Long term (current) use of anticoagulants; I10 Essential (primary) hypertension; Z94.2 Lung transplant status
CPT/HCPCS: 71045; 87635; 87801; 99284

== ENCOUNTER → 2023-12-04 09:45 | Outpatient (BNVA) | payer OTHER, SELFPAY | PROVIDERS: PCP Nurse Practitioner Family; Visit Provider Nurse Practitioner Family | DX: Z94.2 Lung transplant status (principal) | CPT/HCPCS: 87635 ==

== ENCOUNTER → 2023-12-11 09:19 | Outpatient (BNVA) | payer OTHER, SELFPAY | PROVIDERS: PCP Nurse Practitioner Family; Visit Provider Nurse Practitioner Family | DX: Z94.2 Lung transplant status (principal) | CPT/HCPCS: 87635 ==

== ENCOUNTER → 2023-12-23 10:23 | Outpatient (BNVA) | payer OTHER, SELFPAY | PROVIDERS: PCP Nurse Practitioner Family; Visit Provider Nurse Practitioner Family | DX: Z94.2 Lung transplant status (principal) | CPT/HCPCS: 80053; 80197; 82784; 83735; 85025 ==

== ENCOUNTER → 2024-01-14 13:02 | Outpatient (BNVA) | payer OTHER, SELFPAY | PROVIDERS: PCP Nurse Practitioner Family; Visit Provider Nurse Practitioner Family | DX: Z94.2 Lung transplant status (principal) | CPT/HCPCS: 80053; 80197; 82607; 83735; 85025; 87496 ==

== ENCOUNTER → 2024-01-19 16:01 | Outpatient (BNVA) | payer OTHER, SELFPAY | PROVIDERS: PCP Nurse Practitioner Family; Visit Provider Nurse Practitioner Family | DX: M47.817 Spondylosis without myelopathy or radiculopathy, lumbosacral region (principal); M54.50 Low back pain, unspecified | CPT/HCPCS: 72100 ==

== ENCOUNTER → 2024-02-09 08:59 | Outpatient (BNVA) | payer OTHER, SELFPAY | PROVIDERS: PCP Nurse Practitioner Family; Visit Provider Nurse Practitioner Family | DX: Z94.2 Lung transplant status (principal) | CPT/HCPCS: 80053; 80197; 83735; 85025; 87496 ==

== ENCOUNTER 2024-02-12 09:01 | Outpatient (CLI) | payer OTHER, SELFPAY ==
--- NOTE | 2024-02-12 09:30 | MR_ITS ---
WS: [id number] MRI LUMBAR SPINE NONCONTRAST TECHNIQUE: Sagittal T1, T2 and STIR imaging. Axial T1 and T2 imaging. CLINICAL INFORMATION: M54.50 - Low back pain, unspecified COMPARISON: None. FINDINGS: Mild lumbar curve. No acute compression. No high-grade central canal stenosis. L1-L2: Normal. L2-L3: Mild facet arthropathy. Spinal canal and foramen are patent. L3-L4: Mild facet arthropathy. Spinal canal and foramen are patent. L4-L5: Slight retrolisthesis. Mild annular bulging. Moderate facet arthropathy. Spinal canal and fora men are patent. L5-S1: Slight retrolisthesis. Mild annular bulging. Mild facet arthropathy. Spinal canal and foramen are patent. Visualized pelvic bony structures: Normal. Paravertebral soft tissues: Normal. MR/MR lumbar spine wo con* [id number] IMPRESSION: 1. Mild lumbar curve. No acute compression. No significant central canal steno sis. 2. Mild annular bulging L4-L5 and L5-S1. 3. No significant foraminal narrowing. 4. Mild facet arthropathy L4-L5 and L5-S1.
== END 2024-02-12 09:02 | disposition home or self-care (01) ==
LOC: RAD 09:03
PROVIDERS: PCP Nurse Practitioner Family; Visit Provider Nurse Practitioner Family
DX: M47.896 Other spondylosis, lumbar region (principal)
CPT/HCPCS: 72148

== ENCOUNTER → 2024-02-23 09:43 | Outpatient (BNVA) | payer OTHER, SELFPAY | PROVIDERS: PCP Nurse Practitioner Family; Visit Provider Nurse Practitioner Family | DX: Z94.2 Lung transplant status (principal) | CPT/HCPCS: 80053; 80197; 83735; 85025; 87496 ==

== ENCOUNTER 2024-03-03 09:46 | Outpatient (CLI) | payer OTHER, SELFPAY | END 2024-03-03 09:47 | disposition home or self-care (01) | PROVIDERS: Family Provider Internal Medicine Pulmonary Disease; PCP Nurse Practitioner Family; Visit Provider Nurse Practitioner Family | DX: Z94.2 Lung transplant status (principal); R94.2 Abnormal results of pulmonary function studies | CPT/HCPCS: 94010 ==

== ENCOUNTER → 2024-03-08 09:41 | Outpatient (BNVA) | payer OTHER, SELFPAY | PROVIDERS: Family Provider Internal Medicine Pulmonary Disease; PCP Nurse Practitioner Family; Visit Provider Nurse Practitioner Family | DX: Z94.2 Lung transplant status (principal) | CPT/HCPCS: 80053; 80197; 83735; 85025; 87496 ==

== ENCOUNTER 2024-03-30 09:55 | Outpatient (CLI) | payer OTHER, SELFPAY | END 2024-03-30 09:56 | disposition home or self-care (01) | PROVIDERS: Family Provider Internal Medicine Pulmonary Disease; PCP Nurse Practitioner Family; Visit Provider Nurse Practitioner Family | DX: Z94.2 Lung transplant status (principal); R94.2 Abnormal results of pulmonary function studies | CPT/HCPCS: 94010 ==

== ENCOUNTER → 2024-04-08 10:39 | Outpatient (BNVA) | payer OTHER, SELFPAY | PROVIDERS: Family Provider Internal Medicine Pulmonary Disease; PCP Nurse Practitioner Family; Visit Provider Nurse Practitioner Family | DX: Z94.2 Lung transplant status (principal) | CPT/HCPCS: 80053; 80197; 83735; 85025; 87496 ==

== ENCOUNTER → 2024-04-26 09:57 | Outpatient (BNVA) | payer OTHER, SELFPAY | PROVIDERS: Family Provider Internal Medicine Pulmonary Disease; PCP Nurse Practitioner Family; Visit Provider Nurse Practitioner Family | DX: Z94.2 Lung transplant status (principal) | CPT/HCPCS: 80053; 80197; 83735; 85025; 87496 ==

== ENCOUNTER → 2024-05-31 10:09 | Outpatient (BNVA) | payer OTHER, SELFPAY | PROVIDERS: Family Provider Internal Medicine Pulmonary Disease; PCP Nurse Practitioner Family; Visit Provider Nurse Practitioner Family | DX: I82.512 Chronic embolism and thrombosis of left femoral vein (principal); Z94.2 Lung transplant status | CPT/HCPCS: 80053; 80197; 83735; 85025; 87496 ==

== ENCOUNTER → 2024-06-28 11:17 | Outpatient (BNVA) | payer OTHER, SELFPAY | PROVIDERS: Family Provider Internal Medicine Pulmonary Disease; PCP Nurse Practitioner Family; Visit Provider Nurse Practitioner Family | DX: Z94.2 Lung transplant status (principal); Z79.899 Other long term (current) drug therapy | CPT/HCPCS: 80053; 80197; 83735; 85025; 87496 ==

== ENCOUNTER → 2024-07-05 10:44 | Outpatient (BNVA) | payer OTHER, SELFPAY | PROVIDERS: Family Provider Internal Medicine Pulmonary Disease; PCP Nurse Practitioner Family; Visit Provider Nurse Practitioner Family | DX: Z94.2 Lung transplant status (principal) | CPT/HCPCS: 87496 ==

== ENCOUNTER → 2024-07-26 09:15 | Outpatient (BNVA) | payer BC, SELFPAY | PROVIDERS: Family Provider Internal Medicine Pulmonary Disease; PCP Nurse Practitioner Family; Visit Provider Nurse Practitioner Family | DX: Z94.2 Lung transplant status (principal) | CPT/HCPCS: 80053; 80197; 83735; 85025; 87496 ==

== ENCOUNTER → 2024-09-23 10:09 | Outpatient (BNVA) | payer BC, SELFPAY | PROVIDERS: Family Provider Internal Medicine Pulmonary Disease; PCP Nurse Practitioner Family; Visit Provider Nurse Practitioner Family | DX: Z94.2 Lung transplant status (principal) | CPT/HCPCS: 80053; 80197; 83735; 85025; 87496 ==

== ENCOUNTER → 2024-10-25 12:52 | Outpatient (BNVA) | payer BC, SELFPAY | PROVIDERS: PCP Nurse Practitioner Family; Visit Provider Nurse Practitioner Family | DX: Z94.2 Lung transplant status (principal) | CPT/HCPCS: 80053; 80197; 83735; 85025; 87496 ==

== ENCOUNTER → 2024-11-29 09:00 | Outpatient (BNVA) | payer BC, SELFPAY | PROVIDERS: PCP Nurse Practitioner Family; Visit Provider Nurse Practitioner Family | DX: Z94.2 Lung transplant status (principal) | CPT/HCPCS: 80053; 80197; 83735; 85025; 87496 ==

== ENCOUNTER → 2024-12-27 10:37 | Outpatient (BNVA) | payer BC, SELFPAY | PROVIDERS: PCP Nurse Practitioner Family; Visit Provider Nurse Practitioner Family | DX: I82.512 Chronic embolism and thrombosis of left femoral vein (principal); Z94.2 Lung transplant status | CPT/HCPCS: 80053; 80197; 83036; 83735; 85025; 87496 ==

== ENCOUNTER → 2025-01-11 12:47 | Outpatient (BNVA) | payer BC, SELFPAY | PROVIDERS: PCP Nurse Practitioner Family; Visit Provider Nurse Practitioner Family | DX: Z94.2 Lung transplant status (principal) | CPT/HCPCS: 80053; 80197; 83735; 85025; 87496 ==

== ENCOUNTER → 2025-02-28 10:26 | Outpatient (BNVA) | payer BC, SELFPAY | PROVIDERS: PCP Nurse Practitioner Family; Visit Provider Nurse Practitioner Family | DX: Z94.2 Lung transplant status (principal) | CPT/HCPCS: 80053; 80197; 83735; 85025; 87496 ==

== ENCOUNTER → 2025-03-14 12:00 | Outpatient (BNVA) | payer BC, SELFPAY | PROVIDERS: PCP Nurse Practitioner Family; Visit Provider Nurse Practitioner Family | DX: Z94.2 Lung transplant status (principal) | CPT/HCPCS: 80197 ==